=== PATIENT | male | born 1970 | race Caucasian/White ===

== ENCOUNTER 2020-08-12 15:36 | Observation (INO) | payer OTHER, SELFPAY ==
[2020-08-12] VITALS (9 sets, daily range): BP systolic 169–220; BP diastolic 23–128; PULSE 73–102; RESP 16–22; TEMP 36–36.7; O2SAT 96–99; BMI 25.6
[2020-08-12 15:42] LABS: Glucose Point of Care > 500 (65-105)
[2020-08-12 15:57] LABS: Basophils Absolute Auto 0.1 K/mm3 (0.0-0.1); Basophils Percent Auto 0.6 % (0.2-1.2); Eosinophils Absolute Auto 0.1 K/mm3 (0-0.3); Eosinophils Percent Auto 1.6 % (0-4.4); Hematocrit 39.8 % (42.0-52.0); Hemoglobin 13.5 g/dL (14.0-18.0); Immature Granulocyte Absolute 0.03 K/mm3 (0.00-0.031); Immature Granulocyte Percent A 0.3 % (0-0.5); Lymphocytes Absolute Auto 2.18 K/mm3 (0.9-3.2); Lymphocytes Percent Auto 24.8 % (18.3-44.2); Mean Corpuscular HGB Conc 33.9 g/dl (32-36); Mean Corpuscular Hemoglobin 27.2 pg (26-34); Mean Corpuscular Volume 80.1 fl (80-100); Mean Platelet Volume 9.1 fl (7.4-10.4); Monocytes Absolute Auto 0.7 K/mm3 (0.1-0.6); Monocytes Percent Auto 7.4 % (2.6-8.5); Neutrophils Absolute Auto 5.8 K/mm3 (1.3-6.7); Neutrophils Percent Auto 65.3 % (45.5-73.1); Platelet Count Result 270 k/mm3 (150-375); Red Blood Count 4.97 M/mm3 (4.6-6.20); Red Cell Distribution Width 13.6 % (11.5-14.5); White Blood Count 8.8 K/mm3 (4.5-10.0)
[2020-08-12 16:12] LABS: Alanine Aminotransferase 24 U/L (4-50); Albumin Level 3.8 g/dL (3.5-5.1); Alkaline Phosphatase 164 U/L (38-126); Anion Gap 10 mmol/L (8-16); Aspartate Amino Transferase 23 U/L (17-59); Bilirubin,Total 0.4 mg/dL (0.2-1.3); Blood Urea Nitrogen 14 mg/dL (9-20); Carbon Dioxide 26 mmol/L (22-30); Chloride 88 mmol/L (98-107); Estimated CRCL calculation 98 ml/min; Estimated Glomerular Filt Rate > 60; Magnesium 1.6 mg/dL (1.6-2.3); Phosphorus 4.9 mg/dL (2.5-4.5); Potassium 4.7 mmol/L (3.4-5.0); Sodium 124 mmol/L (137-145)
[2020-08-12 16:13] LABS: Add Urine Microscopic? YES; Appearance Urine Clear (Clear); Bilirubin Urine Negative (Negative); Blood Urine Negative (Negative); Color Urine Straw (Yellow); Glucose Urine UA 3+ mg/dL (Negative); Ketones Urine Negative (Negative); Leukocyte Esterase Ur Negative LEU/UL (Negative); Nitrate Urine Negative (Negative); Protein Urine Negative (Negative); RBC Urine 0-2 /hpf (0-2); Specific Grav Ur 1.035 (1.001-1.035); Urobilinogen Urine Negative mg/dL (<2.0); WBC Urine 0-3 /hpf
[2020-08-12 16:15] LABS: Beta-Hydroxybutyrate/Acetoacetate 0.21 mmol/L (0.02-0.27)
[2020-08-12 16:18] LABS: Glucose 621 mg/dL (75-110)
--- NOTE | 2020-08-12 16:27 | ED.GENADULT ---
HPI - General Adult General Chief complaint: Recheck/Abnormal Lab/Rx Stated complaint: ELEVATED BLOOD SUGAR Time Seen by Provider: 08/12/20 16:24 Source: RN notes reviewed History of Present Illness HPI narrative: Patient presents emergency department from home for hyperglycemia and hypertension. The patient states that he has a history of diabetes and hypertension but is not been taking any of his medications over the past year and a half he had gone to a new PCP today and was noted to have elevated blood pressure as well as blood sugars and was advised to come to the ER for further evaluation he denies any fever chills chest pain shortness of breath abdominal pain nausea vomiting diarrhea Related Data Home Medications Medication Instructions Recorded Confirmed No Home Medications 08/12/20 08/12/20 Allergies Allergy/AdvReac Type Severity Reaction Status Date / Time No Known Drug Allergies Allergy Unknown Unknown Verified 08/12/20 16:23 Review of Systems Review of Systems: Narrative: Gen.: Denies fevers or chills Eyes: Denies eye pain or visual change ENT: Denies congestion Respiratory: Denies shortness of breath or cough CV: Denies chest pain or palpitations GI: Denies abdominal pain nausea, emesis or diarrhea denies frequency or hematuria Musculoskeletal: Denies back pain or muscle pain Neuro: Denies numbness, tingling, weakness or focal weakness Skin: Denies rash Except as documented, all other systems reviewed and negative [facility] Past Medical History Medical History (Updated 08/12/20 @ 18:20 by Rocky De Anda DO) Diabetes mellitus Hypertension Social History Social History (Updated 08/12/20 @ 16:28 by Rocky De Anda DO) Smoking status: Never smoker Gender identity (if verbalized by the patient): Male Exam Narrative: Exam Narrative: APPEARANCE: No acute distress, nontoxic, resting in bed EYES: EOMI HEENT: Normocephalic, atraumatic, OMM RESPIRATORY: No respiratory distress Clear to auscultation bilaterally with no rhonchi wheezing or rales. CARDIOVASCULAR: Regular rate and rhythm without murmurs rubs or gallops. ABDOMINAL: Soft, nontender, nondistended, no rebound or guarding MUSCULOSKELETAl: Moves all extremities. No clubbing, cyanosis or edema. NEURO: Awake and alert. Following commands, speech normal, no focal deficits SKIN:: Warm, dry. No rashes lesions or abrasions PSYCHIATRIC: Normal affect/mood, Course Course Emergency Course: : Discussed with FELICIANO Ruby for Dr. Kemp presentation work-up agrees with admission at this time. Agrees with giving patient IV insulin 2 L of fluid discussed patient's current blood pressure the patient is asymptomatic at this time and is felt like blood pressures are always elevated request patient to give metoprolol 25 mg at this time Discussed with patient and family results of workup and diagnosis. Discussed need for admission. Patient and family understand and agree to current treatment plan Vital Signs Vital signs: Vital Signs Temperature 96.8 F L 08/12/20 15:39 Pulse Rate 102 H 08/12/20 15:39 Respiratory Rate 16 08/12/20 15:39 Blood Pressure 220/119 H 08/12/20 15:39 Pulse Oximetry 99 08/12/20 15:39 Temperature 96.8 F L 08/12/20 15:39 Pulse Rate 83 08/12/20 17:13 Respiratory Rate 17 08/12/20 17:13 Blood Pressure 182/107 H 08/12/20 17:13 Pulse Oximetry 96 08/12/20 17:13 Medical Decision Making Vital Signs Vital Signs: Vital Signs Temperature 96.8 F L 08/12/20 15:39 Pulse Rate 102 H 08/12/20 15:39 Respiratory Rate 16 08/12/20 15:39 Blood Pressure 220/119 H 08/12/20 15:39 Pulse Oximetry 99 08/12/20 15:39 Temperature 96.8 F L 08/12/20 15:39 Pulse Rate 83 08/12/20 17:13 Respiratory Rate 17 08/12/20 17:13 Blood Pressure 182/107 H 08/12/20 17:13 Pulse Oximetry 96 08/12/20 17:13 Lab Data Result diagrams: 08/12/20 15:49 08/12/20 15:49 Labs: Lab R
--- NOTE | 2020-08-12 16:28 | ECG_ITS ---
Measurements Intervals [place] Rate: 80 P: 35 [place]: 191 QRS: -58 QRSD: 118 T: 141 QT: 388 QTc: 450 Interpretive Statements SINUS RHYTHM INCOMPLETE RIGHT BUNDLE BRANCH BLOCK LEFT ANTERIOR FASCICULAR BLOCK LEFT VENTRICULAR HYPERTROPHY AND ST-T CHANGE CANNOT RULE OUT SEPTAL INFARCT, AGE INDETERMINATE T WAVE ABNORMALITY IN LATERAL LEADS- CONSIDER ISCHEMIA BASELINE ARTIFACT- V1-V2 ABNORMAL ECG Electronically Signed On 08-12-2020 19:39:59 SPORTS BOOK WRITER by Roque Simmons D.O.
[2020-08-12] MEDS: SODIUM CHLORIDE 0.9% IV 1,000 ML 999 ML IV CONT ×2 (16:34→17:10)
[2020-08-12] MEDS: INSULIN HUMAN REGULAR (*BKC) 100 UNITS/ML 10 UNITS IV PUSH (17:09)
[2020-08-12] MEDS: METOPROLOL TARTRATE 25 MG TABLET PO (17:10)
[2020-08-12 18:03] LABS: Glucose Point of Care 396 (65-105)
[2020-08-12 20:02] LABS: Glucose Point of Care 342 (65-105)
--- NOTE | 2020-08-12 20:13 | ADMGEN ---
This patient, Quentin Sheets, was admitted to IMU Room 206-02. Patient/family oriented to hospital policies and general routines including ID bracelet, bed and alarms, visiting hours, pain management, procedures, bathroom and other care routines, personal items, smoking policy, room service/diet, and visiting hours. Information on how to activate the Rapid Response Team has been discussed. Patient/Family are encouraged to report perceived risks to care and to ask questions if they do not understand what they are told or what they should do. Report from Corey RIVERA arrived Approx [id number]/12/2020
[2020-08-12] MEDS: SODIUM CHLORIDE 0.9% IV 1,000 ML 125 ML IV CONT (20:16)
[2020-08-12 21:30] LABS: Anion Gap 5 mmol/L (8-16); Blood Urea Nitrogen 12 mg/dL (9-20); Calcium 7.8 mg/dL (8.4-10.2); Carbon Dioxide 24 mmol/L (22-30); Chloride 98 mmol/L (98-107); Estimated CRCL calculation 111 ml/min; Estimated Glomerular Filt Rate > 60; Glucose 477 mg/dL (75-110); Potassium 3.9 mmol/L (3.4-5.0); Sodium 127 mmol/L (137-145)
--- NOTE | 2020-08-12 21:42 | PM.IMHP ---
H&P: HPI History of Present Illness Date/Time: 08/12/20 21:42 Chief complaint: hyperglycemia, htn, hyponatremia Narrative: Quentin Sheets is a 49 year old male who has a history of having hypertension and diabetes. The patient stated he has not taken any medication for couple years. The patient finally had a primary care doctor and went to see the primary care doctor today. He does not monitor his blood sugars at home. The patient stated he had polydipsia and polyuria for about the last month. He said when he 1st found out that he was diabetic he was in DKA but he is not in DKA today. He has no nausea vomiting or diarrhea. This was his initial visit to the primary care doctor's office. He was sent to the emergency room from that office due to hyperglycemia and hypertension. Blood sugar was noted to be 621 and then 342 and then 477 the patient is not in DKA and is not having an anion gap. Patient's sodium was 124 than 127 most likely due to the elevated blood sugar. He was given IV fluids. Blood pressure was 220/119 now 169/128. He was given metoprolol in the ER he was given IV insulin. The patient is being admitted into observation status on the date of service of 08/12/2020 Review of Systems Review of Systems: All systems reviewed & are unremarkable except as noted in HPI and below Constitutional: Constitutional: Reports as per HPI and Reports no additional constitutional complaints Eyes: Eyes: Reports as per HPI and Reports no additional eye complaints ENT: Reports system reviewed and no additional complaints, except as documented and Reports Normal hearing present Cardiovascular: Cardiovascular: Reports no additional cardiovascular complaints Respiratory: Respiratory: Reports no additional respiratory complaints and Reports no additional respiratory complaints Gastrointestinal: Gastrointestinal: Reports as per HPI and Reports no additional gastrointestinal complaints Musculoskeletal: Musculoskeletal: Reports no additional musculoskeletal complaints Integumentary/Breasts: Skin/Breast: Reports system reviewed and no additional complaints, except as docu and Reports as per HPI Neurologic: Reports system reviewed and no additional complaints, except as documented, Reports as per HPI and Reports Normal hearing present Psychiatric: Psychiatric: Reports no additional psychiatric complaints and Reports as per HPI Endocrine: Endocrine: Reports no additional endocrine complaints Hematologic/Lymphatic: Hematologic/Lymphatic: Reports no additional hematologic/lymphatic complaints Allergic/Immunologic: Allergic/Immunologic: Reports no additional allergic/immunologic complaints [facility] Past Medical History Medical History Diabetes mellitus Hypertension Surgical History Surgical History (Updated 08/12/20 @ 21:49 by Flori Ramos NP) No pertinent past surgical history Family History Family History Mother COPD (chronic obstructive pulmonary disease) Father Unknown family medical history Social History Social History (Updated 08/12/20 @ 21:49 by Flori Ramos NP) Social History: The patient has 4 biological children in to children that he has guardianship of and is raising. He is and his is a durable power county attorney for healthcare. 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 The patient used to smoke and quit about a year ago. He denies any alcohol or illicit drugs. The patient is a full code. Smoking status: Former smoker Alcohol intake: never Substance use: never Gender identity (if verbalized by the patient): Male Spiritual care concerns: No Meds Home Medications and Allergies Home Medications Medication Instructions Recorded Confirmed Type No Home Medications 08/12/20 08/12/20 History Allergies Allergy/AdvReac Type Severity Reaction Status Date / Time No Known [place]
[2020-08-12 23:38] LABS: Glucose Point of Care 398 (65-105)
[2020-08-13] VITALS (12 sets, daily range): BP systolic 148–201; BP diastolic 93–113; PULSE 72–98; RESP 16–20; TEMP 36.6–37; O2SAT 97–99
[2020-08-13 04:57] LABS: Basophils Percent Auto 0.4 % (0.2-1.2); Eosinophils Absolute Auto 0.1 K/mm3 (0-0.3); Eosinophils Percent Auto 1.6 % (0-4.4); Hematocrit 33.5 % (42.0-52.0); Hemoglobin 11.5 g/dL (14.0-18.0); Immature Granulocyte Absolute 0.03 K/mm3 (0.00-0.031); Immature Granulocyte Percent A 0.4 % (0-0.5); Lymphocytes Absolute Auto 1.99 K/mm3 (0.9-3.2); Lymphocytes Percent Auto 29.8 % (18.3-44.2); Mean Corpuscular HGB Conc 34.3 g/dl (32-36); Mean Corpuscular Hemoglobin 26.6 pg (26-34); Mean Corpuscular Volume 77.5 fl (80-100); Mean Platelet Volume 9.2 fl (7.4-10.4); Monocytes Absolute Auto 0.5 K/mm3 (0.1-0.6); Monocytes Percent Auto 7.9 % (2.6-8.5); Neutrophils Percent Auto 59.9 % (45.5-73.1); Platelet Count Result 231 k/mm3 (150-375); Red Blood Count 4.32 M/mm3 (4.6-6.20); Red Cell Distribution Width 13.2 % (11.5-14.5); White Blood Count 6.7 K/mm3 (4.5-10.0)
[2020-08-13 05:19] LABS: Alanine Aminotransferase 20 U/L (4-50); Alkaline Phosphatase 120 U/L (38-126); Anion Gap 5 mmol/L (8-16); Aspartate Amino Transferase 22 U/L (17-59); Bilirubin,Total 0.4 mg/dL (0.2-1.3); Blood Urea Nitrogen 10 mg/dL (9-20); Carbon Dioxide 26 mmol/L (22-30); Chloride 100 mmol/L (98-107); Estimated CRCL calculation 128 ml/min; Estimated Glomerular Filt Rate > 60; Glucose 354 mg/dL (75-110); Potassium 3.9 mmol/L (3.4-5.0); Sodium 131 mmol/L (137-145)
[2020-08-13] MEDS: SODIUM CHLORIDE 0.9% IV 1,000 ML 125 ML IV CONT (06:02)
[2020-08-13 06:09] LABS: Hemoglobin A1C > 14.0 % (<5.7)
[2020-08-13] MEDS: hydrALAZINE HCL 20 MG/ML VIAL 10 MG IV PUSH (07:38)
[2020-08-13 08:27] LABS: Glucose Point of Care 340 (65-105)
[2020-08-13] MEDS: lisinopriL 20 MG TABLET PO (08:34)
[2020-08-13] MEDS: metFORMIN HCL 500 MG TABLET PO ×2 (08:34→16:46)
[2020-08-13] MEDS: amLODIPine BESYLATE 5 MG TABLET PO (08:34)
[2020-08-13] MEDS: INSULIN ASPART (*BKC) 100 UNITS/ML SUB-Q ×2 (08:37→12:25)
[2020-08-13] MEDS: ENOXAPARIN 40 MG/0.4 ML SYRINGE SUB-Q (08:39)
[2020-08-13] MEDS: INSULIN DETEMIR 100 UNITS/ML 8 UNITS SUB-Q (12:33)
[2020-08-13 12:37] LABS: Glucose Point of Care 318 (65-105)
[2020-08-13 17:25] LABS: Glucose Point of Care 177 (65-105)
--- NOTE | 2020-08-13 17:36 | PM.DS ---
DS: Admitting Diagnosis Admitting Diagnosis Admitting Diagnosis: hyperglycemia, htn, hyponatremia DS: Discharge Diagnosis Discharge Diagnosis (1) Diabetes mellitus: Code(s): E11.9 - Type 2 diabetes mellitus without complications Status: Acute Assessment and Plan: Mary sent in for elevated glucose. Glucose here was 621. He was treated with IV fluids and insulin. A1c 14. We monitored his glucose closely with Accucheks and covered with sliding scale insulin. Manager Professional Development and perioperative educator consulted. He was able to talk with the cementer machine joiner but not the Diab Educator so this will be arranged as outpatient. Metformin and Lantus as night added. (2) Acute hyponatremia: Code(s): E87.1 - Hypo-osmolality and hyponatremia Status: Acute Assessment and Plan: Sodium 124 and most likely is related to the hyperglycemia. With better control of his glucose, sodium improved to 131 today. (3) Hypertension: Code(s): I10 - Essential (primary) hypertension Status: Acute Assessment and Plan: BP 220/119 on admission. Patient had been on lisinopril in the past. Lisinopril and Norvasc added with hydralazine available as needed. With this regiment, BP improved. DS: Summary Hospital Course Reason for hospitalization: 49yo male with uncontrolled HTN and DM with noncompliance here for hyperglycemia. Please see H&P for details. Hospital Course: Please see above for hospital course. Status at Discharge Cognitive/behavioral status at discharge: Patient is stable for discharge. Time Spent with Patient Time attestation: Total time spent providing and/or coordinating discharge services: 35 minutes Time spent: Greater than 30 minutes Exam Narrative: Exam Narrative: AF 98.0 153/96 89 16 98% ra Gen - NARD Chest - CTA bilaterally, nml RR CV - RRR S1/S2 Abd - Soft, NT/ND, Positive BS Ext - No pedal edema Psych - Nml mood and affect Skin - Warm and dry DS: Data Data Completed and Pending Labs on day of discharge: Labs from last 24 hours 08/13/20 08/13/20 08/13/20 16:42 11:27 08:23 WBC RBC Hgb Hct MCV MCH MCHC RDW Plt Count MPV Immature Gran % (Auto) Neut % (Auto) Lymph % (Auto) [place] % (Auto) Eos % (Auto) Baso % (Auto) Lymph # (Auto) [place] # (Auto) Eos # (Auto) Baso # (Auto) Abs Immat Gran (auto) Absolute Neuts (auto) Absolute Nucleated RBC Nucleated RBC % Sodium Potassium Chloride Carbon Dioxide Anion Gap BUN Creatinine Estim Creat Clear Calc Estimated GFR Glucose POC Capillary Glucose 177 H 318 H 340 H Hemoglobin A1c Calcium Total Bilirubin AST ALT Alkaline Phosphatase Total Protein Albumin 08/13/20 08/13/20 08/13/20 04:35 04:35 04:35 WBC 6.7 RBC 4.32 L Hgb 11.5 L Hct 33.5 L MCV 77.5 L MCH 26.6 MCHC 34.3 RDW 13.2 Plt Count 231 MPV 9.2 Immature Gran % (Auto) 0.4 Neut % (Auto) 59.9 Lymph % (Auto) 29.8 [place] % (Auto) 7.9 Eos % (Auto) 1.6 Baso % (Auto) 0.4 Lymph # (Auto) 1.99 [place] # (Auto) 0.5 Eos # (Auto) 0.1 Baso # (Auto) 0.0 Abs Immat Gran (auto) 0.03 Absolute Neuts (auto) 4.0 Absolute Nucleated RBC 0.0 Nucleated RBC % 0.0 Sodium 131 L Potassium 3.9 Chloride 100 Carbon Dioxide 26 Anion Gap 5 L BUN 10 Creatinine 0.60 L Estim Creat Clear Calc 128 Estimated GFR > 60 Glucose 354 H POC Capillary Glucose Hemoglobin A1c > 14.0 H Calcium 8.0 L Total Bilirubin 0.4 AST 22 ALT 20 Alkaline Phosphatase 120 Total Protein 6.0 L Albumin 3.0 L 08/12/20 08/12/20 08/12/20 23:34 21:14 19:56 WBC RBC Hgb Hct MCV MCH MCHC RDW Plt Count MPV Immature Gran % (Auto) Neut % (Auto) Lymph % (Auto) [place] % (Auto) Eos % (Auto)
--- NOTE | 2020-08-13 20:25 | PC.NURSE ---
Pt left at 2012 on 08/13/2020 picked him up
--- NOTE | 2020-08-14 15:06 | PCCDE ---
Consult received 08/12 for diabetes education. Educator was n/a 08/13 and pt was discharged on 08/13. Called pt at home today. Pt was discharged on 12 units Lantus Solostar at HS. Pt confirms that he picked up and took medication as prescribed last night. Pt sts he has used insulin pen in the past and denied questions. He has BG meter and v/u to test QID until f/up with PCP. Pt sts he was just about to call for PCP appointment. Reviewed sx and tx of hypoglycemia. Pt sts he did not get Diabetes Management book so confirmed address and will mail. Pt declines OP appointment. Encouraged to call DM specialist prn.
== END 2020-08-13 20:15 | disposition home or self-care (01) ==
LOC: ANHED 18:19 → ANHIMU 18:23
PROVIDERS: Nurse Practitioner; Admitting Provider Internal Medicine; Emergency Provider Emergency Medicine; Visit Provider Internal Medicine
DX: E11.65 Type 2 diabetes mellitus with hyperglycemia (principal); I10 Essential (primary) hypertension; E87.1 Hypo-osmolality and hyponatremia; R94.31 Abnormal electrocardiogram [ECG] [EKG]; Z87.891 Personal history of nicotine dependence
CPT/HCPCS: 36415; 80048; 80053; 81001; 82010; 82948; 83036; 83735; 84100; 85025; 93005; 96361; 96372; 96374; 99285; A9270; G0378; G0379; J0360; J1650; J1815; J7030

== ENCOUNTER 2024-02-16 13:47 | Outpatient (CLI) | payer OTHER, SELFPAY ==
--- NOTE | 2024-02-16 | ECHO_ITS ---
Patient Info Name: Quentin Sheets Age: 53 years : 1970 Gender: Male Ht: 68 in Wt: 185 lbs BSA: 2.03 m2 HR: 86 bpm BP: 201 / 131 mmHg Technical Quality: Good Exam Date: 02/16/2024 2:17 PM Exam Location: Echo Lab Patient Status: Outpatient Admit Date: 02/16/2024 Staff Ordering Physician: Marci, Cher MONREAL Robotics Mechanic: Erik Alberts RDCS Attending Provider: Marci, Cher MONREAL Referring Physician: Marci BLACKWOOD; Exam Type: CA echo doppler color flow Study Info Indications - cardiomyopathy Complete two-dimensional, color flow and Doppler transthoracic echocardiogram is performed. Summary 1. Complete two-dimensional, color flow and Doppler transthoracic echocardiogram is performed. 2. Left ventricular chamber dimension is moderately enlarged. 3. Left ventricular systolic function is severely reduced, estimated at 25-30%. 4. There is moderate concentric increased left ventricular wall thickness. 5. The left ventricular diastolic function is grade I diastolic dysfunction. 6. E/e' 8 is minimally elevated. 7. Right ventricular systolic function is moderately reduced and with abnormal TAPSE 1.5 cm. 8. Left atrial chamber dimension is mildly enlarged. 9. There is trace aortic valve regurgitation. 10. There is mild mitral valve regurgitation. 11. No pulmonary hypertension, estimated pulmonary arterial systolic pressure is 20 mmHg. Left Ventricle E/e' 8 is minimally elevated. Left ventricular chamber dimension is moderately enlarged. Left ventricular systolic function is severely reduced, estimated at 25-30%. There is moderate concentric increased left ventricular wall thickness. The left ventricular diastolic function is grade I diastolic dysfunction. Right Ventricle Right ventricular systolic function is moderately reduced and with abnormal TAPSE 1.5 cm. Right ventricular chamber dimension is normal. Left Atria Left atrial chamber dimension is mildly enlarged. Right Atria Right atrial chamber dimension is normal. Aortic Valve The aortic valve is trileaflet. There is no aortic valve stenosis. There is trace aortic valve regurgitation. Pulmonic Valve There is no pulmonic regurgitation. Mitral Valve There is no mitral valve stenosis. There is mild mitral valve regurgitation. Tricuspid Valve There is no tricuspid valve regurgitation. No pulmonary hypertension, estimated pulmonary arterial systolic pressure is 20 mmHg. Pericardium/Pleural There is no pericardial effusion. Inferior Vena Cava Normal inferior vena cava with >50% collapse upon inspiration consistent with normal right atrial pressure, 5 mmHg. Aorta The aortic root size at the sinus of Valsalva is normal. Left Ventricular Outflow Tract Name Value Normal LVOT 2D LVOT Diameter 2.1 cm LVOT Doppler LVOT Peak Gradient 3 mmHg LVOT Mean Gradient 2 mmHg LVOT VTI 15 cm LVOT VTI/AV VTI Ratio 0.8 LVOT Stroke Volume 53 ml LVOT CO 4.6 l/min LVOT CI 2.3 l/min/m2 Pulmonic Valve
== END 2024-02-16 13:48 | disposition home or self-care (01) ==
LOC: ANHCARD 13:56
PROVIDERS: PCP Physician Assistant; Visit Provider Physician Assistant
DX: I42.9 Cardiomyopathy, unspecified (principal); I34.0 Nonrheumatic mitral (valve) insufficiency
CPT/HCPCS: 93306

== ENCOUNTER 2024-09-16 20:57 | Inpatient (IN) | payer OTHER, SELFPAY ==
--- NOTE | ~2024-09-16 | XR_ITS ---
XR chest 2V Ordering provider: Gerber South MD History: 53 years Male with . sob . Comparison: July 03, 2000 FINDINGS: MEDIASTINUM: The cardiac silhouette is not enlarged. Prominent brianna. LUNGS: No pneumothorax. Possible Opacification the right lung base is seen suggestive of atelectasis versus pneumonia. Pleural effusion cannot be excluded. Elevation of the right hemidiaphragm is also p ossible. OTHER: No free air under the diaphragm. IMPRESSION: Possible Right basilar atelectasis versus pneumonia with possible effusion. Reviewed, dictated and finalized at location A. [facility]
[2024-09-16 21:02] VITALS: BP 210/128; PULSE 103; RESP 24; TEMP 36.3; O2SAT 100
--- NOTE | 2024-09-16 21:07 | ECG_ITS ---
Test Date: 2024-09-16 21:16:43 Measurements Intervals [place] Rate: 101 P: 25 [place]: 156 QRS: -43 QRSD: 123 T: 134 QT: 381 QTc: 494 Interpretive Statements SINUS TACHYCARDIA POSSIBLE LEFT ATRIAL ENLARGEMENT [-0.1mV P WAVE IN V1/V2] MARKED LEFT AXIS DEVIATION [QRS AXIS < -30] LEFT VENTRICULAR HYPERTROPHY AND ST-T CHANGE [VOLTAGE CRITERIA PLUS ST/T ABNORMALITY] PROBABLE LATERAL MYOCARDIAL INFARCTION , OF INDETERMINATE AGE [35 ms Q WAVE IN I/aVL/V5/V6] LATERAL ST AND T-WAVE ABNORMALITY, CONSISTENT WITH ISCHEMIA ABNORMAL ECG Electronically Signed On 09-17-2024 08:28:24 PRINCIPAL TRAINER by Jordan Motley M.D.
[2024-09-16 21:18] LABS: Basophils Absolute Auto 0.1 K/mm3 (0.0-0.1); Basophils Percent Auto 0.8 % (0.2-1.2); Eosinophils Absolute Auto 0.2 K/mm3 (0-0.3); Eosinophils Percent Auto 2.1 % (0-4.4); Hematocrit 40.1 % (42.0-52.0); Hemoglobin 12.7 g/dL (14.0-18.0); Immature Granulocyte Absolute 0.03 K/mm3 (0.00-0.031); Immature Granulocyte Percent A 0.3 % (0-0.5); Lymphocytes Absolute Auto 1.46 K/mm3 (0.9-3.2); Lymphocytes Percent Auto 15.5 % (18.3-44.2); Mean Corpuscular HGB Conc 31.7 g/dl (32-36); Mean Corpuscular Hemoglobin 27.5 pg (26-34); Mean Corpuscular Volume 86.8 fl (80-100); Mean Platelet Volume 9.6 fl (7.4-10.4); Monocytes Absolute Auto 0.8 K/mm3 (0.1-0.6); Monocytes Percent Auto 8.6 % (2.6-8.5); Neutrophils Absolute Auto 6.9 K/mm3 (1.3-6.7); Neutrophils Percent Auto 72.7 % (45.5-73.1); Platelet Count Result 295 k/mm3 (150-375); Red Blood Count 4.62 M/mm3 (4.6-6.20); Red Cell Distribution Width 15.7 % (11.5-14.5); White Blood Count 9.4 K/mm3 (4.5-10.0)
[2024-09-16 21:28] LABS: Alanine Aminotransferase 44 U/L (6-50); Albumin Level 3.9 g/dL (3.5-5.1); Alkaline Phosphatase 107 U/L (38-126); Anion Gap 9 mmol/L (4-12); Aspartate Amino Transferase 34 U/L (17-59); Bilirubin,Total 0.8 mg/dL (0.2-1.3); Blood Urea Nitrogen 20 mg/dL (9-20); Calcium 8.6 mg/dL (8.4-10.2); Carbon Dioxide 23 mmol/L (22-30); Chloride 103 mmol/L (98-107); Estimated CRCL calculation 72 ml/min; Estimated Glomerular Filt Rate > 60; Glucose 184 mg/dL (65-110); Potassium 4.4 mmol/L (3.4-5.0); Sodium 135 mmol/L (137-145)
[2024-09-16 21:45] LABS: NT Pro B Type Natriuretic Pept 4740 pg/mL (19.9-100); Troponin I 0.368 ng/mL (0.000-0.034)
[2024-09-16 21:55] LABS: Influenza A QL RT-PCR Negative (Negative); Influenza B QL RT-PCR Negative (Negative); RSV RNA, RT-PCR Negative (Negative); SARS-CoV-2 RNA PCR Negative (Negative)
[2024-09-16 22:19] VITALS: BP 196/128; PULSE 97; RESP 15; O2SAT 98
--- NOTE | 2024-09-16 22:41 | ED_ITS ---
HPI - General Adult General Chief complaint: Shortness of Breath/Dyspnea Stated complaint: SOB, BLE swelling Time Seen by Provider: 09/16/24 22:07 History of Present Illness HPI narrative: 53-year-old male presenting to the emergency department for evaluation for lower extremity swelling and exertional shortness of breath. Patient does have history hypertension and CHF. Patient does admit to being noncompliant with some of his blood pressure medications. Patient states he has attempted have follow-up with his primary care physician but is unable to get these medications filled. Patient states over the last few days he has had worsening orthopnea and lower extremity swelling. Patient denies any chest pain with this. Patient states the shortness breath is worsened while laying flat. Has no O2 requirement. Patient states he was told he had a mild WA last year but patient had a negative cardiac cath at that time. Related Data Allergies Allergy/AdvReac Type Severity Reaction Status Date / Time No Known Drug Allergies Allergy Unknown Unknown Verified 09/16/24 21:06 Review of Systems 2 Review of Systems: All systems reviewed & are unremarkable except as noted in HPI and below PMFSH Past Medical History Medical History (Updated 09/17/24 @ 02:06 by Gerber South MD) Diabetes mellitus Hypertension Surgical History Surgical History (Updated 08/12/20 @ 21:49 by Flori Ramos NP) No pertinent past surgical history Family History Family History Mother COPD (chronic obstructive pulmonary disease) Father Unknown family medical history Social History Social History (Updated 08/12/20 @ 21:49 by Flori Ramos NP) Social History: The patient has 4 biological children in to children that he has guardianship of and is raising. 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 The patient used to smoke and quit about a year ago. He denies any alcohol or illicit drugs. The patient is a full code. Smoking packs per day: 1.5 Smoking cigarettes per day: 30.0 Years smoked: 30 Smoking pack-years: 45.00 Smoking status: Current every day smoker Tobacco type: cigarettes Alcohol intake: never Substance use: never Do You Feel Safe in your Home?: Yes Lack of Transportation: No Lack of Food: Never True Current Housing: I Have Housing Concerned About Future Housing: No Difficulty Paying Gas/Electric Bills: No Difficulty Paying for Meds: No Currently Unemployed: No Education: Associate Degree Difficulty w/ Childcare or Family Care: No Gender identity (if verbalized by the patient): Male Spiritual care concerns: No Exam 2 Narrative: APPEARANCE: Well appearing, no pain, no distress, well-nourished. HEAD: normocephalic, atraumatic. EYES: PERRLA/EOMI, conjunctivae clear. NOSE: Normal no drainage EARS:TMS clear with good light reflex. THROAT: Pharynx clear, no exudate. NECK: Supple. No adenopathy, no masses. RESPIRATORY: Airway patent, respirations nonlabored. Clear to auscultation bilaterally, no rales, rhonchi, wheezing. CARDIOVASCULAR: Regular rate and rhythm without murmurs rubs or gallops. ABDOMINAL: Soft, nontender, nondistended, normal bowel sounds MUSCULOSKELETAL: Bilateral lower extremity +2 pitting in NEURO: Alert. Cranial nerves II through XII intact. Grossly intact SKIN: Warm, dry. Normal Color Course Vital Signs Vital signs: Vital Signs Temperature 97.4 F L 09/16/24 21:02 Pulse Rate 103 H 09/16/24 21:02 Respiratory Rate 24 H 09/16/24 21:02 Blood Pressure 210/128 H 09/16/24 21:02 Pulse Oximetry 100 09/16/24 21:02 Oxygen Delivery Room Air 09/16/24 21:02 Temperature 97.8 F 09/17/24 04:53 Pulse Rate 88 09/17/24 06:00 Respiratory Rate 18 09/17/24 04:53 Blood Pressure 158/84 H 09/17/24 04:53 Pulse Oximetry 100 09/17/24 04:53 Oxygen Delivery Room Air 09/17/24 05:06 Medical Decision Making [facility] Narrative Medical decision making narrative: 53-year-old male presents to the emergency department for evaluation for worsening shortness of breath. Patient denies any associated chest pain with this. Patient states he has not been taking his blood pressure medications as directed. Patient was treated with a dose of hydralazine and also IV Lasix and patient's blood pressure did improve initially to a systolic of 170. Did have a increase in his troponin with no changes in the EKG. Patient continued to deny any pain. Dr Motley from Cardiology was consulted and they did not want the patient started on heparin at this time. We will continue to follow the troponins. Patient will be admitted to the IMU. Case was discussed with the hospitalist patient was accepted for admission. Differential Diagnosis Differential Diagnosis: CHF, ACS, would, RSV, influenza, fluid overload, hypertensive urgency, hypertensive crisis Vital Signs Vital Signs: Vital Signs Temperature 97.4 F L 09/16/24 21:02 Pulse Rate 103 H 09/16/24 21:02 Respiratory Rate 24 H 09/16/24 21:02 Blood Pressure 210/128 H 09/16/24 21:02 Pulse Oximetry 100 09/16/24 21:02 Oxygen Delivery Room Air 09/16/24 21:02 Temperature 97.8 F 09/17/24 04:53 Pulse Rate 88 09/17/24 06:00 Respiratory Rate 18 09/17/24 04:53 Blood Pressure 158/84 H 09/17/24 04:53 Pulse Oximetry 100 09/17/24 04:53 Oxygen Delivery Room Air 09/17/24 05:06 Lab Data Lab results reviewed: Yes I reviewed the patient's lab results. 09/16/24 21:12 09/16/24 21:12 Labs: Lab Results 09/16/24 09/16/24 09/16/24 Range/Units 21:12 21:12 21:12 WBC 9.4 (4.5-10.0) K/mm3 RBC 4.62 (4.6-6.20) M/mm3 Hgb 12.7 L (14.0-18.0) g/dL Hct 40.1 L (42.0-52.0) % MCV 86.8 (80-100) fl MCH 27.5 (26-34) pg MCHC 31.7 L (32-36) g/dl RDW 15.7 H (11.5-14.5) % Plt Count 295 (150-375) k/mm3 MPV 9.6 (7.4-10.4) fl Immature Gran % (Auto) 0.3 (0-0.5) % Neut % (Auto) 72.7 (45.5-73.1) % Lymph % (Auto) 15.5 L (18.3-44.2) % [place]idan % (Auto) 8.6 H (2.6-8.5) % Eos % (Auto) 2.1 (0-4.4) % Baso % (Auto) 0.8 (0.2-1.2) % Lymph # (Auto) 1.46 (0.9-3.2) K/mm3 [place] # (Auto) 0.8 H (0.1-0.6) K/mm3 Eos # (Auto) 0.2 (0-0.3) K/mm3 Baso # (Auto) 0.1 (0.0-0.1) K/mm3 Abs Immat Gran (auto) 0.03 (0.00-0.031) K/mm3 Absolute Neuts (auto) 6.9 H (1.3-6.7) K/mm3 Absolute Nucleated RBC 0.000 (0.0-0.012) K/mm3 Nucleated RBC % 0.0 (0.0-0.2) % Sodium 135 L (137-145) mmol/L Potassium 4.4 (3.4-5.0) mmol/L Chloride 103 (98-107) mmol/L Carbon Dioxide 23 (22-30) mmol/L Anion Gap 9 (4-12) mmol/L BUN 20 D (9-20) mg/dL Creatinine 1.17 (0.7-1.3) mg/dL Estim Creat Clear Calc 72 ml/min Estimated GFR > 60 (59 - ) Glucose 184 H (65-110) mg/dL Calcium 8.6 (8.4-10.2) mg/dL Total Bilirubin 0.8 (0.2-1.3) mg/dL AST 34 (17-59) U/L ALT 44 (6-50) U/L Alkaline Phosphatase 107 (38-126) U/L Troponin I 0.368 H* Cancelled (0.000-0.034) ng/mL NT-Pro-B Natriuret Pep 4740 H Cancelled (19.9-100) pg/mL Total Protein 7.0 (6.3-8.2) g/dL Albumin 3.9 (3.5-5.1) g/dL Influenza A (RT-PCR) Negative (Negative) Influenza B (RT-PCR) Negative (Negative) RSV (RT-PCR) Negative (Negative) SARS-CoV-2 RNA (RT-PCR) Negative (Negative) 09/17/24 Range/Units 00:13 WBC (4.5-10.0) K/mm3 RBC (4.6-6.20) M/mm3 Hgb (14.0-18.0) g/dL Hct (42.0-52.0) % MCV (80-100) fl MCH (26-34) pg MCHC (32-36) g/dl RDW (11.5-14.5) % Plt Count (150-375) k/mm3 MPV (7.4-10.4) fl Immature Gran % (Auto) (0-0.5) % Neut % (Auto) (45.5-73.1) % Lymph % (Auto) (18.3-44.2) % [place] % (Auto) (2.6-8.5) % Eos % (Auto) (0-4.4) % Baso % (Auto) (0.2-1.2) % Lymph # (Auto) (0.9-3.2) K/mm3 [place] # (Auto) (0.1-0.6) K/mm3 Eos # (Auto) (0-0.3) K/mm3 Baso # (Auto) (0.0-0.1) K/mm3 Abs Immat Gran (auto) (0.00-0.031) K/mm3 Absolute Neuts (auto) (1.3-6.7) K/mm3 Absolute Nucleated RBC (0.0-0.012) K/mm3 Nucleated RBC % (0.0-0.2) % Sodium (137-145) mmol/L Potassium (3.4-5.0) mmol/L Chloride (98-107) mmol/L Carbon Dioxide (22-30) mmol/L Anion Gap (4-12) mmol/L BUN (9-20) mg/dL Creatinine (0.7-1.3) mg/dL Estim Creat Clear Calc ml/min Estimated GFR (59 - ) Glucose (65-110) mg/dL Calcium (8.4-10.2) mg/dL Total Bilirubin (0.2-1.3) mg/dL AST (17-59) U/L ALT (6-50) U/L Alkaline Phosphatase (38-126) U/L Troponin I 0.640 H* D (0.000-0.034) ng/mL NT-Pro-B Natriuret Pep (19.9-100) pg/mL Total Protein (6.3-8.2) g/dL Albumin (3.5-5.1) g/dL Influenza A (RT-PCR) (Negative) Influenza B (RT-PCR) (Negative) RSV (RT-PCR) (Negative) SARS-CoV-2 RNA (RT-PCR) (Negative) Imaging Data Radiologist's impression: Impressions Chest X-Ray 09/16/24 21:34 IMPRESSION: Possible Right basilar atelectasis versus pneumonia with possible effusion. Critical Care Time Critical Care Time Critical Care Time: Yes Total Critical Care Time: 35 Discharge Plan Discharge Clinical Impression: Hypertensive emergency, Elevated troponin Patient Disposition: Still a Patient Condition: Serious
[2024-09-16] MEDS: FUROSEMIDE INJ 40 MG/4 ML VIAL IV PUSH (22:48)
[2024-09-16] MEDS: hydrALAZINE HCL 20 MG/ML VIAL 10 MG IV PUSH (22:48)
[2024-09-16 23:38] VITALS: BP 176/104; PULSE 92; RESP 15; O2SAT 99
[2024-09-17] VITALS (20 sets, daily range): BP systolic 131–180; BP diastolic 69–100; PULSE 85–99; RESP 15–22; TEMP 36.6–37.1; O2SAT 95–100; BMI 28.8
--- NOTE | 2024-09-17 00:12 | ECG_ITS ---
Test Date: 2024-09-17 00:18:25 Measurements Intervals [place] Rate: 87 P: 19 [place]: 210 QRS: -42 QRSD: 122 T: 158 QT: 400 QTc: 483 Interpretive Statements SINUS RHYTHM WITH FIRST DEGREE AV BLOCK LEFT ANTERIOR FASCICULAR BLOCK LEFT VENTRICULAR HYPERTROPHY AND ST-T CHANGE [VOLTAGE CRITERIA PLUS ST/T ABNORMALITY] POSSIBLE LATERAL MYOCARDIAL INFARCTION , OF INDETERMINATE AGE [30 ms Q WAVE IN I/aVL/V5/V6] LATERAL ST AND T-WAVE ABNORMALITY, CONSIDER ISCHEMIA ABNORMAL ECG Electronically Signed On 09-17-2024 08:31:09 APPLICATION SUPPORT by Jordan Motley M.D.
[2024-09-17] MEDS: hydrALAZINE HCL 20 MG/ML VIAL 10 MG IV PUSH (01:38)
[2024-09-17] MEDS: NITROGLYCERIN OINTMENT 1 INCH DOSE TRANSDERM (01:39)
[2024-09-17] MEDS: ASPIRIN 81 MG CHEWABLE TABLET 324 MG PO (02:27)
[2024-09-17 03:41] LABS: Troponin I 0.905 ng/mL (0.000-0.034)
--- NOTE | 2024-09-17 04:38 | ADMGEN ---
This patient, Quentin Sheets, was admitted to IMU Room 207-01. Patient/family oriented to hospital policies and general routines including ID bracelet, bed and alarms, visiting hours, pain management, procedures, bathroom and other care routines, personal items, smoking policy, room service/diet, and visiting hours. Information on how to activate the Rapid Response Team has been discussed. Patient/Family are encouraged to report perceived risks to care and to ask questions if they do not understand what they are told or what they should do.
--- NOTE | 2024-09-17 05:02 | PC.NURSE ---
Patient states he does not know any of his home medications or what he takes medications for. Unsure when he last took any medications. States he has a blood pressure medication, but sometimes takes it and sometimes does not. States he thinks he was told he has CHF.
[2024-09-17 07:01] LABS: Glucose Point of Care 132 mg/dl (65-105)
--- NOTE | 2024-09-17 07:31 | P.HP_ITS ---
H&P: HPI History of Present Illness Date/Time: 09/17/24 07:31 Chief Complaint: Shortness of breath Narrative: 53 years old with past medical history of hypertension and congestive heart failure was admitted to the emergency room the complaint of having increased swelling in the lower extremity and shortness of breath going on for the last 1 week. According to the patient he is noncompliant with his medication and is not taking his water pill for the last few days. Patient denies any chest pain. Patient denies any orthopnea proximal nocturnal dyspnea at this time. In the ER patient patient was high and patient was found to be in acute heart failure. Patient was given Lasix and hydralazine. Patient EKG shows nonspecific EKG changes but is to prevent was high. Cardiology was consulted who decided to put the patient acute care for further management. At this time patient lying comfortably in the bed. Patient has mild shortness of breath. But no chest pain. Review of Systems Review of Systems: All systems reviewed & are unremarkable except as noted in HPI and below (the history and examination.) [facility] Past Medical History Medical History Diabetes mellitus Hypertension Surgical History Surgical History No pertinent past surgical history Family History Family History Mother COPD (chronic obstructive pulmonary disease) Father Unknown family medical history Social History Social History Social History: The patient has 4 biological children in to children that he has guardianship of and is raising. 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 The patient used to smoke and quit about a year ago. He denies any alcohol or illicit drugs. The patient is a full code. Smoking packs per day: 1.5 Smoking cigarettes per day: 30.0 Years smoked: 30 Smoking pack-years: 45.00 Smoking status: Current every day smoker Tobacco type: cigarettes Alcohol intake: never Substance use: never Do You Feel Safe in your Home?: Yes Lack of Transportation: No Lack of Food: Never True Current Housing: I Have Housing Concerned About Future Housing: No Difficulty Paying Gas/Electric Bills: No Difficulty Paying for Meds: No Currently Unemployed: No Education: Associate Degree Difficulty w/ Childcare or Family Care: No Gender identity (if verbalized by the patient): Male Spiritual care concerns: No Meds Home Medications and Allergies Home Medications ?Medication ?Instructions ?Recorded ?Confirmed ?Type amlodipine 5 mg tablet (Norvasc) 5 mg PO QAM #30 tabs 08/13/20 Rx blood sugar diagnostic (OneTouch #1 pkg 08/13/20 Rx Verio test strips) blood-glucose meter (OneTouch #1 pkg 08/13/20 Rx Verio Flex Meter) insulin glargine 100 unit/mL (3 12 unit (0.12 mL) subcut HS #3 mL 08/13/20 Rx mL) subcutaneous pen (Lantus Solostar U-100 Insulin) lancets 30 gauge (OneTouch Delica #1 pkg 08/13/20 Rx Plus Lancet) lisinopril 20 mg tablet 20 mg PO QAM #30 tabs 08/13/20 Rx metformin 500 mg tablet 500 mg PO BIDWM #60 tabs 08/13/20 Rx (Glucophage) pen needle, diabetic 32 gauge x #1 pkg 08/13/20 Rx 5/32 (BD Ultra-Fine Zee Pen Needle) Allergies Allergy/AdvReac Type Severity Reaction Status Date / Time No Known Drug Allergies Allergy Unknown Unknown Verified 09/16/24 21:06 Vital Signs Vital Signs - 24 hr 09/16/24 21:02 09/16/24 22:19 09/16/24 23:38 Temperature 36.3 C L Pulse Rate 103 H 97 92 Respiratory Rate 24 H 15 15 Blood Pressure 210/128 H 196/128 H 176/104 H Pulse Oximetry 100 98 99 Oxygen Delivery Room Air 09/17/24 00:14 09/17/24 01:43 09/17/24 02:52 Temperature Pulse Rate 91 89 96 Respiratory Rate 22 H 15 16 Blood Pressure 168/98 H 180/100 H 164/84 H Pulse Oximetry 100 97 100 Oxygen Delivery 09/17/24 04:35 09/17/24 04:36 09/17/24 04:53 Temperature 36.6 C 36.6 C Pulse Rate 90 89 90 Respiratory Rate 18 18 Blood Pressure 158/84 H 158/84 H Pulse Oximetry 100 100 Oxygen Delivery 09/17/24 05:06 09/17/24 06:00 Temperature Pulse Rate 88 Respiratory Rate Blood Pressure Pulse Oximetry Oxygen Delivery Room Air Exam Narrative: APPEARANCE: Well appearing, no pain, no distress, well-nourished. HEAD: normocephalic, atraumatic. EYES: PERRLA/EOMI, conjunctivae clear. NOSE: Normal no drainage EARS:TMS clear with good light reflex. THROAT: Pharynx clear, no exudate. NECK: Supple. No adenopathy, no masses. RESPIRATORY: Airway patent, respirations nonlabored. Clear to auscultation bilaterally, no rales, rhonchi, wheezing. CARDIOVASCULAR: Regular rate and rhythm without murmurs rubs or gallops. ABDOMINAL: Soft, nontender, nondistended, normal bowel sounds MUSCULOSKELETAL: Bilateral lower extremity +2 pitting in NEURO: Alert. Cranial nerves II through XII intact. Grossly intact SKIN: Warm, dry. Normal Color H&P: Results Labs Labs: Short CBC 09/16/24 Range/Units 21:12 WBC 9.4 (4.5-10.0) K/mm3 Hgb 12.7 L (14.0-18.0) g/dL Hct 40.1 L (42.0-52.0) % Plt Count 295 (150-375) k/mm3 BMP 09/16/24 21:12 Sodium 135 L Potassium 4.4 Chloride 103 Carbon Dioxide 23 BUN 20 D Creatinine 1.17 Glucose 184 H Calcium 8.6 Cardiac Enzymes 09/16/24 09/16/24 09/17/24 Range/Units 21:12 21:12 00:13 Troponin I 0.368 H* Cancelled 0.640 H* D (0.000-0.034) ng/mL 09/17/24 Range/Units 03:06 Troponin I 0.905 H* D (0.000-0.034) ng/mL Liver Function 09/16/24 Range/Units 21:12 Total Bilirubin 0.8 (0.2-1.3) mg/dL AST 34 (17-59) U/L ALT 44 (6-50) U/L Alkaline Phosphatase 107 (38-126) U/L Albumin 3.9 (3.5-5.1) g/dL Assessment and Plan Assessment and plan (1) Acute on chronic systolic (congestive) heart failure: Code(s): I50.23 - Acute on chronic systolic (congestive) heart failure Status: Acute Assessment and Plan: Plan is to continue diet his patient. Strict and I&Os. Cardiology consult. (2) Elevated troponin: Code(s): R79.89 - Other specified abnormal findings of blood chemistry Status: Acute Assessment and Plan: Trend troponin and cardiology consult. (3) Diabetes mellitus: Code(s): E11.9 - Type 2 diabetes mellitus without complications Status: Acute Assessment and Plan: Continue current treatment monitor closely. Diabetic Education (4) Hypertensive emergency: Code(s): I16.1 - Hypertensive emergency Status: Acute Assessment and Plan: Monitor blood pressure closely. Start home medication. (5) Smoking history: Code(s): Z87.891 - Personal history of nicotine dependence Status: Acute Assessment and Plan: Smoking Education provided and patient patient to quit smoking. Plan Patient is admitted acute care is full code patient. Cardiology consult. DVT prophylaxis started. Code status full Quality VTE Prophylaxis VTE prophylaxis: pharmacologic ordered
--- NOTE | 2024-09-17 08:17 | ECG_ITS ---
Test Date: 2024-09-17 08:27:25 Measurements Intervals [place] Rate: 91 P: 37 [place]: 194 QRS: -47 QRSD: 119 T: 165 QT: 397 QTc: 491 Interpretive Statements SINUS RHYTHM POSSIBLE LEFT ATRIAL ENLARGEMENT [-0.1mV P-WAVE IN V1/V2] LEFT ANTERIOR FASCICULAR BLOCK [QRS AXIS <= -45, QR IN I, RS IN II] LEFT VENTRICULAR HYPERTROPHY AND ST-T CHANGE [VOLTAGE CRITERIA PLUS ST/T ABNORMALITY] LATERAL ST AND T-WAVE ABNORMALITY, CONSISTENT WITH ISCHEMIA ABNORMAL ECG Electronically Signed On 09-17-2024 08:42:43 WASHROOM OPERATOR by Jordan Motley M.D.
[2024-09-17] MEDS: FUROSEMIDE INJ 40 MG/4 ML VIAL IV PUSH ×2 (09:28→20:31)
[2024-09-17] MEDS: ENOXAPARIN 40 MG/0.4 ML SYRINGE SUB-Q (09:28)
[2024-09-17] MEDS: ATORVASTATIN 20 MG TABLET PO (09:29)
[2024-09-17] MEDS: amLODIPine BESYLATE 5 MG TABLET PO (09:29)
[2024-09-17] MEDS: lisinopriL 10 MG TABLET PO ×2 (09:29→16:29)
--- NOTE | 2024-09-17 10:21 | PC.NURSE ---
Possible ST elevation noted to tele monitor. EKG obtained. No complaints of chest pain. Does not appear to have changed from previous ekg, but notified Dr Tolbert in order to review if needed.
--- NOTE | 2024-09-17 10:54 | PM.CNCAR ---
Assessment and Plan Assessment and plan (1) Acute on chronic systolic (congestive) heart failure: Code(s): I50.23 - Acute on chronic systolic (congestive) heart failure Status: Acute Assessment and Plan: Known ejection fraction here of 25-30%. States that he was catheterization that [place] and was told that he did not have any obstructive coronary disease. He has acute exacerbation due to running out of several his medications. At this point will diuresis 40 mg IV q.12 hours and furosemide. Discontinue amlodipine as he does not take calcium channel julia given his severe cardiomyopathy. Resume his Jardiance. He is diabetic and was on 25 mg daily and this will be restarted. Spironolactone 25 mg daily also be will be started. Lisinopril 20 mg daily. Uncertain why he is not on a beta-julia but if he can tolerate and if no she contraindication, would add carvedilol. (2) Elevated troponin: Code(s): R79.89 - Other specified abnormal findings of blood chemistry Status: Acute Assessment and Plan: Continue to trend troponins. Likely secondary to hypertensive emergency and heart failure EKG is abnormal and will try to obtain catheterization records from [facility] to confirm no significant CAD. Troponin now. 2D echocardiogram with Doppler will also be reordered. Aspirin 81 mg p.o. daily to be started in the interim (3) Hypertensive emergency: Code(s): I16.1 - Hypertensive emergency Status: Acute Assessment and Plan: Start and or resume spironolactone, lisinopril. P.r.n. hydralazine (4) Hypertension associated with diabetes: Code(s): E11.59 - Type 2 diabetes mellitus with other circulatory complications; I15.2 - Hypertension secondary to endocrine disorders Status: Acute Assessment and Plan: As detailed above (5) Smoking history: Code(s): Z87.891 - Personal history of nicotine dependence Status: Acute Assessment and Plan: Tobacco abuse counseling performed (6) Hyperlipidemia associated with type 2 diabetes mellitus: Code(s): E11.69 - Type 2 diabetes mellitus with other specified complication; E78.5 - Hyperlipidemia, unspecified Status: Acute Assessment and Plan: Atorvastatin 40 mg daily he 20 started (7) Cardiomyopathy: Code(s): I42.9 - Cardiomyopathy, unspecified Status: Acute Assessment and Plan: Previously severe with EF 25-30%. Probably nonischemic. Repeat 2D echocardiogram Doppler History of Present Illness History of Present Illness Consult date/time: 09/17/24 10:54 Requesting physician: Gerber South MD Consult reason: Other (Hypertensive emergency) Reason For Visit: Hypertensive emergency Narrative: Reason for consult, hypertensive emergency Date of service 09/17/2024 Flushed provider: Dr. South History patient is a 53-year-old male who has history of severe cardiomyopathy, hypertension, diabetes. Did have workup at [facility] but has not followed up. He has ran out of several of his medications for the past several weeks. If he does not know which medications he has ran out of but regardless he presented to the hospital with 4 days of worsening lower extremity swelling, worsening shortness of breath with activity. His short of breath with doing simple things such as walking. He also had some dizziness. No paroxysmal nocturnal dyspnea, orthopnea, chest pain, syncope is. He came to the ER for further workup evaluation. BP was markedly elevated she is. Next troponin is also minimally elevated and rising. Worsening lower extremity swelling is noted started on IV diuresis. He is already feeling better at this point. Review of Systems Review of Systems: All systems reviewed & are unremarkable except as noted in HPI and below Constitutional: Constitutional: Denies body ache(s) Eyes: Eyes: Denies blurry vision ENT: Denies epistaxis Cardiovascular: Cardiovascular: Denies chest pain and Reports leg edema Respiratory: Respiratory: Reports dyspnea and Reports dyspnea on exertion Gastrointestinal: Gastrointestinal: Denies abdominal pain Genitourinary: Genitourinary: Denies hematuria Musculoskeletal: Musculoskeletal: Denies back pain Integumentary/Breasts: Skin/Breast: Denies skin pain Neurologic: Denies headache(s) Psychiatric: Psychiatric: Denies anxiety Endocrine: Endocrine: Denies excessive sweating Hematologic/Lymphatic: Hematologic/Lymphatic: Denies easy bleeding Allergic/Immunologic: Allergic/Immunologic: Denies lip swelling PMFSH Past Medical History Medical History Diabetes mellitus Hypertension Surgical History Surgical History No pertinent past surgical history Family History Family History Mother COPD (chronic obstructive pulmonary disease) Father Unknown family medical history Social History Social History Social History: The patient has 4 biological children in to children that he has guardianship of and is raising. 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 The patient used to smoke and quit about a year ago. He denies any alcohol or illicit drugs. The patient is a full code. Smoking packs per day: 1.5 Smoking cigarettes per day: 30.0 Years smoked: 30 Smoking pack-years: 45.00 Smoking status: Current every day smoker Tobacco type: cigarettes Alcohol intake: never Substance use: never Do You Feel Safe in your Home?: Yes Lack of Transportation: No Lack of Food: Never True Current Housing: I Have Housing Concerned About Future Housing: No Difficulty Paying Gas/Electric Bills: No Difficulty Paying for Meds: No Currently Unemployed: No Education: Associate Degree Difficulty w/ Childcare or Family Care: No Gender identity (if verbalized by the patient): Male Spiritual care concerns: No Meds Home Medications and Allergies Home Medications ?Medication ?Instructions ?Recorded ?Confirmed ?Type blood sugar diagnostic (OneTouch #1 [facility] 08/13/20 09/17/24 Rx Verio test strips) blood-glucose meter (OneTouch #1 [facility] 08/13/20 09/17/24 Rx Verio Flex Meter) lancets 30 gauge (OneTouch Delica #1 [facility] 08/13/20 09/17/24 Rx Plus Lancet) lisinopril 20 mg tablet 20 mg PO QAM #30 tabs 08/13/20 09/17/24 Rx metformin 500 mg tablet 500 mg PO BIDWM #60 tabs 08/13/20 09/17/24 Rx (Glucophage) pen needle, diabetic 32 gauge x #1 pkg 08/13/20 Rx 5/32 (BD Ultra-Fine Zee Pen Needle) atorvastatin 40 mg tablet 40 mg PO QPM 09/17/24 09/17/24 History empagliflozin 25 mg tablet 25 mg PO DAILY 09/17/24 09/17/24 History (Jardiance) furosemide 40 mg tablet 40 mg PO DAILY 09/17/24 09/17/24 History insulin glargine 100 unit/mL (3 24 unit subcut HS 09/17/24 09/17/24 History mL) subcutaneous pen (Lantus Solostar U-100 Insulin) spironolactone 25 mg tablet 25 mg PO DAILY 09/17/24 09/17/24 History Allergies Allergy/AdvReac Type Severity Reaction Status Date / Time No Known Drug Allergies Allergy Unknown Unknown Verified 09/16/24 21:06 Vital Signs Vital Signs - 24 hr 09/16/24 21:02 09/16/24 22:19 09/16/24 23:38 Temperature 36.3 C L Pulse Rate 103 H 97 92 Respiratory Rate 24 H 15 15 Blood Pressure 210/128 H 196/128 H 176/104 H Pulse Oximetry 100 98 99 Oxygen Delivery Room Air 09/17/24 00:14 09/17/24 01:43 09/17/24 02:52 Temperature Pulse Rate 91 89 96 Respiratory Rate 22 H 15 16 Blood Pressure 168/98 H 180/100 H 164/84 H Pulse Oximetry 100 97 100 Oxygen Delivery 09/17/24 04:35 09/17/24 04:36 09/17/24 04:53 Temperature 36.6 C 36.6 C Pulse Rate 90 89 90 Respiratory Rate 18 18 Blood Pressure 158/84 H 158/84 H Pulse Oximetry 100 100 Oxygen Delivery 09/17/24 05:06 09/17/24 06:00 09/17/24 08:00 Temperature Pulse Rate 88 Respiratory Rate Blood Pressure Pulse Oximetry Oxygen Delivery Room Air Room Air 09/17/24 08:00 09/17/24 08:06 09/17/24 10:00 Temperature 36.8 C Pulse Rate 99 86 99 Respiratory Rate 20 Blood Pressure 160/93 H Pulse Oximetry 96 Oxygen Delivery Exam Narrative: Awake alert oriented appears stated age Const: General: comfortable and no acute distress HENMT: Face/Nose/Sinus: Normal nares present Eyes: General: appearance normal, both eyes and all related structures Sclera: sclerae normal Neck: Neck: supple and no JVD Chest: Other: No reproducible chest wall pain to palpation Resp: Effort & Inspection: normal respiratory effort Auscultation: diminished lung sounds Cardio: Rate: regular rate Rhythm: regular rhythm Heart sounds: no murmurs GI: Inspection: non-distended GI Palp: Yes Soft to palpation Auscultation: normal bowel sounds Skin: General skin exam: normal color Neuro: Speech: normal speech Motor exam (neuro): 5/5 motor strength present throughout Extrem: General: edema Other: 1 to 2+ bilateral extremity edema Psych: Mental Status: mental status grossly normal Affect: normal affect Results Labs and Meds 09/16/24 21:12 09/16/24 21:12 Lab results: Cardiac Enzymes 09/16/24 09/16/24 09/17/24 Range/Units 21:12 21:12 00:13 AST 34 (17-59) U/L Troponin I 0.368 H* Cancelled 0.640 H* D (0.000-0.034) ng/mL 09/17/24 Range/Units 03:06 AST (17-59) U/L Troponin I 0.905 H* D (0.000-0.034) ng/mL CBC 09/16/24 Range/Units 21:12 WBC 9.4 (4.5-10.0) K/mm3 RBC 4.62 (4.6-6.20) M/mm3 Hgb 12.7 L (14.0-18.0) g/dL Hct 40.1 L (42.0-52.0) % Plt Count 295 (150-375) k/mm3 Lymph # (Auto) 1.46 (0.9-3.2) K/mm3 Converse # (Auto) 0.8 H (0.1-0.6) K/mm3 Eos # (Auto) 0.2 (0-0.3) K/mm3 Baso # (Auto) 0.1 (0.0-0.1) K/mm3 Comprehensive Metabolic Panel 09/16/24 Range/Units 21:12 Sodium 135 L (137-145) mmol/L Potassium 4.4 (3.4-5.0) mmol/L Chloride 103 (98-107) mmol/L Carbon Dioxide 23 (22-30) mmol/L BUN 20 D (9-20) mg/dL Creatinine 1.17 (0.7-1.3) mg/dL Glucose 184 H (65-110) mg/dL Calcium 8.6 (8.4-10.2) mg/dL AST 34 (17-59) U/L ALT 44 (6-50) U/L Alkaline Phosphatase 107 (38-126) U/L Total Protein 7.0 (6.3-8.2) g/dL Albumin 3.9 (3.5-5.1) g/dL Intake and Output 09/16/24 09/17/24 09/17/24 23:59 07:59 15:59 Intake Total 200 240 Output Total 0 Balance 200 240 Intake: Oral 200 240 Output: Urine 0 Other: # Unmeasured Voids 1 Patient Weight 09/17/24 23:59 Weight 85.8 kg EKGs are personally reviewed and independently interpreted showing sinus rhythm left ventricular hypertrophy. He does say he does have secondary ST T wave abnormality secondary to LVH as well as lateral ST and T-wave abnormalities which may be related to ischemia. Abnormal ECG Echo 2023 2. Left ventricular chamber dimension is moderately enlarged. 3. Left ventricular systolic function is severely reduced, estimated at 25-30%. 4. There is moderate concentric increased left ventricular wall thickness. 5. The left ventricular diastolic function is grade I diastolic dysfunction. 6. E/e' 8 is minimally elevated. 7. Right ventricular systolic function is moderately reduced and with abnormal TAPSE 1.5 cm. 8. Left atrial chamber dimension is mildly enlarged. 9. There is trace aortic valve regurgitation. 10. There is mild mitral valve regurgitation. 11. No pulmonary hypertension, estimated pulmonary arterial systolic pressure is 20 mmHg.
[2024-09-17 11:35] LABS: Troponin I 0.695 ng/mL (0.000-0.034)
[2024-09-17 12:08] LABS: Glucose Point of Care 187 mg/dl (65-105)
[2024-09-17] MEDS: SPIRONOLACTONE 25 MG TABLET PO (13:01)
[2024-09-17 16:14] LABS: Glucose Point of Care 175 mg/dl (65-105)
[2024-09-17 21:01] LABS: Glucose Point of Care 203 mg/dl (65-105)
[2024-09-18] VITALS (18 sets, daily range): BP systolic 113–166; BP diastolic 67–99; PULSE 80–93; RESP 16–20; TEMP 36.4–37.1; O2SAT 92–100
--- NOTE | 2024-09-18 | ECHO_ITS ---
Patient Info Name: Quentin Sheets Age: 53 years : 1970 Gender: Male Ht: 68 in Wt: 189 lbs BSA: 2.05 m2 Exam Date: 09/18/2024 9:49 AM Exam Location: Echo Lab Patient Status: Inpatient Admit Date: 09/18/2024 Staff Ordering Physician: Bryce Tolbert MD Attending Provider: Elisa Donovan MD Referring Physician: Tomasz GONZALES; Exam Type: CA echo dop color flow w con Summary 1. Left ventricular chamber dimension is mildly enlarged. 2. Left ventricular systolic function is normal, estimated at 30-35%. 3. There is severely increased left ventricular wall thickness. 4. The left ventricular diastolic function is grade II diastolic dysfunction. 5. Left atrial chamber dimension is mildly enlarged. 6. There is mild aortic valve regurgitation. 7. There is trace mitral valve regurgitation. Left Ventricle Left ventricular chamber dimension is mildly enlarged. Left ventricular systolic function is normal, estimated at 30-35%. There is severely increased left ventricular wall thickness. The left ventricular diastolic function is grade II diastolic dysfunction. Right Ventricle Right ventricular chamber dimension is normal. Right ventricular systolic function is normal. Left Atria Left atrial chamber dimension is mildly enlarged. Right Atria Right atrial chamber dimension is normal. Aortic Valve The aortic valve is trileaflet. There is mild aortic valve sclerosis. There is no aortic valve stenosis. There is mild aortic valve regurgitation. Pulmonic Valve The pulmonic valve is normal. There is no pulmonic valve stenosis. There is no pulmonic regurgitation. Mitral Valve The mitral valve has normal leaflets. There is no mitral valve stenosis. There is trace mitral valve regurgitation. Tricuspid Valve The tricuspid valve leaflets are normal. There is no significant tricuspid valve stenosis. There is no tricuspid valve regurgitation. Pericardium/Pleural The pericardium appears normal. There is no pericardial effusion. Inferior Vena Cava Normal inferior vena cava with >50% collapse upon inspiration consistent with Empty right atrial pressure, 10 mmHg. Aorta The aortic root size at the sinus of Valsalva is normal. The prox ascending aorta size is normal. Left Ventricular Outflow Tract Name Value Normal LVOT 2D LVOT Diameter 2.07 cm LVOT Doppler LVOT Peak Gradient 3 mmHg LVOT Mean Gradient 2 mmHg LVOT VTI 17.98 cm LVOT VTI/AV VTI Ratio 0.62 LVOT Stroke Volume 60.46 ml LVOT CO 4.85 l/min LVOT CI 2.37 L/min/m2 Pulmonic Valve Name Value Normal RVOT Doppler RVOT Peak Gradient 1 mmHg PV Doppler PV Peak Gradient 2 mmHg Mitral Valve Name Value Normal MV Doppler MV Peak Gradient 4 mmHg MV Mean Gradient 1 mmHg MV Decel Jerome 742.45 cm/s2 MV PHT 0 s MV Area (PHT) 6.01 cm2 4.00-5.00 MV Area (Cont Eq VTI) 3.45 cm2 MV Diastolic Function MV E Peak Velocity 93.73 cm/s MV A Peak Velocity 63.57 cm/s MV E/A 1.47 MV Decel Time 0 s MV Annular TDI MV E/e' (Septal) 21.72 <=8.00 MV E/e' (Lateral) 20.22 <=8.00 MV E/e' (Average) 20.97 Tricuspid Valve Name Value Normal Estimated PAP/RSVP RA Pressure 10 mmHg <=5 Aorta Name Value Normal Ascending Aorta Ao Root Diameter (MM) 4.23 cm Ao Root Diam Index (MM) 2.06 cm/m2 Aortic Valve Name Value Normal AV Doppler AV Peak Velocity 162.36 cm/s AV Peak Gradient 11 mmHg AV Mean Gradient 6 mmHg AV VTI 29.10 cm AV Area (Cont Eq VTI) 2.08 cm2 >=3.00 AV Area (Cont Eq Jeronimo) 1.86 cm2 AV Regurgitation 2D LVOT Area 3.36 cm2 Ventricles Name Value Normal LV Dimensions 2D/MM IVS Diastolic Thickness (2D) 1.83 cm 0.60-1.00 LVID Diastole (2D) 5.91 cm 4.20-5.80 LVIW Diastolic Thickness (2D) 1.61 cm 0.60-1.00 LVID Systole (2D) 5.19 cm 2.50-4.00 LVOT Diameter 2.07 cm LV Mass (2D Cubed) 506.44 g 88.00-224.00 LV Mass Index (2D Cubed) 0.02 g/cm2 0.00-0.01 Relative Wall Thickness (2D) 0.54 LV Fractional Shortening/Ejection Fraction 2D/MM LV Fractional Shortening (2D) 15 % 25-43 LV EF (2D Teicholz) 31 % 52-72 LV Diastolic Volume (4C MOD) 139.33 ml LV EF (4C MOD) 43 % LV Diastolic Volume (2C MOD) 138.64 ml LV EF (2C MOD) 49 % LV Diastolic Volume (BP MOD) 139.94 ml 62.00-150.00 LV Diastolic Volume Index (BP MOD) 0.07 l/m2 0.03-0.07 LV Systolic Volume (BP MOD) 75.38 ml 21.00-61.00 LV Systolic Volume Index (BP MOD) 0.04 l/m2 0.01-0.03 LV EF (BP MOD) 46 % 52-72 LV Diastolic Length (4C) 8.37 cm LV Systolic Length (4C) 7.34 cm LV Stroke Volume (4C MOD) 59.52 ml Atria Name Value Normal LA Dimensions LA Dimension (MM) 3.43 cm 3.00-4.10 LA Volume (4C A-L) 57.04 ml LA Volume (BP A-L) 71.93 ml RA Dimensions RA Area (4C) 14.25 cm2 <=18.00 Report Signatures
[2024-09-18 05:05] LABS: Alanine Aminotransferase 39 U/L (6-50); Albumin Level 3.6 g/dL (3.5-5.1); Alkaline Phosphatase 96 U/L (38-126); Anion Gap 4 mmol/L (4-12); Aspartate Amino Transferase 29 U/L (17-59); Bilirubin,Total 1.1 mg/dL (0.2-1.3); Blood Urea Nitrogen 20 mg/dL (9-20); Calcium 8.5 mg/dL (8.4-10.2); Carbon Dioxide 26 mmol/L (22-30); Chloride 105 mmol/L (98-107); Estimated CRCL calculation 68 ml/min; Estimated Glomerular Filt Rate > 60; Glucose 139 mg/dL (65-110); Sodium 135 mmol/L (137-145)
[2024-09-18 05:22] LABS: Hemoglobin A1C 7.4 % (<5.7)
[2024-09-18 08:13] LABS: Glucose Point of Care 144 mg/dl (65-105)
[2024-09-18] MEDS: SPIRONOLACTONE 25 MG TABLET PO (08:13)
[2024-09-18] MEDS: ATORVASTATIN 40 MG TABLET PO (08:13)
[2024-09-18] MEDS: lisinopriL 10 MG TABLET PO ×2 (08:13→17:01)
[2024-09-18] MEDS: EMPAGLIFLOZIN 25 MG TABLET PO (08:13)
[2024-09-18] MEDS: ASPIRIN 81 MG ENTERIC TABLET PO (08:14)
[2024-09-18] MEDS: ENOXAPARIN 40 MG/0.4 ML SYRINGE SUB-Q (08:14)
[2024-09-18] MEDS: FUROSEMIDE INJ 40 MG/4 ML VIAL IV PUSH (08:14)
--- NOTE | 2024-09-18 09:11 | PM.IMPN ---
Progress Note: A&P Assessment and Plan (1) Hypertension: Code(s): I10 - Essential (primary) hypertension Status: Acute (2) Hypertensive emergency: Code(s): I16.1 - Hypertensive emergency Status: Acute (3) Elevated troponin: Code(s): R79.89 - Other specified abnormal findings of blood chemistry Status: Acute (4) Cardiomyopathy: Code(s): I42.9 - Cardiomyopathy, unspecified Status: Acute (5) Acute on chronic systolic (congestive) heart failure: Code(s): I50.23 - Acute on chronic systolic (congestive) heart failure Status: Acute (6) Hypertension associated with diabetes: Code(s): E11.59 - Type 2 diabetes mellitus with other circulatory complications; I15.2 - Hypertension secondary to endocrine disorders Status: Acute (7) Hyperlipidemia associated with type 2 diabetes mellitus: Code(s): E11.69 - Type 2 diabetes mellitus with other specified complication; E78.5 - Hyperlipidemia, unspecified Status: Acute Plan 53 years old with past medical history of hypertension and congestive heart failure was admitted to the emergency room the complaint of having increased swelling in the lower extremity and shortness of breath going on for the last 1 week. According to the patient he is noncompliant with his medication and is not taking his water pill for the last few days. In the ER patient patient was high and patient was found to be in acute heart failure. Patient was given Lasix and hydralazine. Patient EKG shows nonspecific EKG changes Cardiology was consulted who decided to put the patient acute care for further management. (1) Acute on chronic combined heart failure: Code(s): I50.23 - Acute on chronic systolic (congestive) heart failure Status: Acute Assessment and Plan: The patient has chronic systolic and diastolic heart failure Echocardiogram February 15 showed Left ventricular systolic function is severely reduced, estimated at 25-30%. And The left ventricular diastolic function is grade I diastolic dysfunction. Elevated BNP 4740 upon arrival. Chest x-ray shows pulmonary congestion and basilar atelectasis Strict and I&Os. Cardiology consult. Switch from oral Lasix to IV Lasix 40 mg b.i.d. IV push Continuous parietal 25 mg daily p.o. Continue Jardiance 25 mg daily p.o. Pending echocardiogram (2) Elevated troponin: Code(s): R79.89 - Other specified abnormal findings of blood chemistry Status: Acute Assessment and Plan: Possible due to acute heart failure, demand ischemia Patient has no chest pain Continue aspirin 81 mg daily p.o., received 34 mg once in the ED, continue Lipitor 40 mg daily p.o. 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 and q.h.s. Diabetic Education (4) Hypertensive emergency: Code(s): I16.1 - Hypertensive emergency Status: Acute Assessment and Plan: Continue home medication lisinopril 20 mg daily p.o. Started IV Lasix 40 mg b.i.d. IV push Patient is on hydralazine IV p.r.n. Monitor blood pressure closely. Blood pressure is better controlled Hyperlipidemia Continue Lipitor 40 mg daily p.o. Smoking history: Code(s): Z87.891 - Personal history of nicotine dependence Status: Acute Assessment and Plan: Smoking Education provided and patient patient to quit smoking. Plan Patient is admitted acute care is full code patient. Cardiology consult. DVT prophylaxis started. Code status full Subjective Date/time seen: 09/18/24 09:11 Interval history: Saw exam patient today, patient denies chest pain, headache, blood pressure is not well controlled. Troponin positive is trending down.. Labs reviewed Exam Narrative: APPEARANCE: Well appearing, no pain, no distress, well-nourished. HEAD: normocephalic, atraumatic. EYES: PERRLA/EOMI, conjunctivae clear. NOSE: Normal no drainage EARS:TMS clear with good light reflex. THROAT: Pharynx clear, no exudate. NECK: Supple. No adenopathy, no masses. RESPIRATORY: Airway patent, respirations nonlabored. Clear to auscultation bilaterally, no rales, rhonchi, wheezing. CARDIOVASCULAR: Regular rate and rhythm without murmurs rubs or gallops. ABDOMINAL: Soft, nontender, nondistended, normal bowel sounds MUSCULOSKELETAL: Bilateral lower extremity +2 pitting in NEURO: Alert. Cranial nerves II through XII intact. Grossly intact SKIN: Warm, dry. Normal Color Objective Data Vital Signs Vital Signs: Vital Signs - 24 hr 09/17/24 10:00 09/17/24 12:00 09/17/24 12:00 Temperature Pulse Rate 99 90 Respiratory Rate Blood Pressure Pulse Oximetry Oxygen Delivery Room Air 09/17/24 12:22 09/17/24 14:00 09/17/24 16:00 Temperature 97.8 F Pulse Rate 90 89 Respiratory Rate 18 Blood Pressure 153/90 H Pulse Oximetry 97 Oxygen Delivery Room Air 09/17/24 16:00 09/17/24 16:20 09/17/24 18:00 Temperature 97.9 F Pulse Rate 91 88 92 Respiratory Rate 18 Blood Pressure 154/86 H Pulse Oximetry 96 Oxygen Delivery 09/17/24 20:00 09/17/24 20:00 09/17/24 20:00 Temperature 98.7 F Pulse Rate 93 92 Respiratory Rate 18 Blood Pressure 135/86 Pulse Oximetry 95 Oxygen Delivery Room Air 09/17/24 22:00 09/17/24 23:47 09/17/24 23:55 Temperature 98.8 F Pulse Rate 88 85 Respiratory Rate 18 Blood Pressure 131/69 Pulse Oximetry 95 95 Oxygen Delivery Room Air 09/18/24 00:00 09/18/24 02:00 09/18/24 04:00 Temperature 98.7 F Pulse Rate 86 86 85 Respiratory Rate 16 Blood Pressure 156/87 H Pulse Oximetry 94 Oxygen Delivery 09/18/24 04:00 09/18/24 04:00 09/18/24 06:00 Temperature Pulse Rate 93 86 Respiratory Rate Blood Pressure Pulse Oximetry 94 Oxygen Delivery Room Air 09/18/24 07:33 Temperature 97.8 F Pulse Rate 81 Respiratory Rate 18 Blood Pressure 155/94 H Pulse Oximetry 93 Oxygen Delivery Intake/Output Intake/Output: Intake & Output 09/15/24 09/16/24 09/17/24 09/18/24 23:59 23:59 23:59 23:59 Intake Total 1790 375 Output Total 2650 500 Balance -860 -125 Meds/Results Medications: Active Medications Generic Name Dose Route Start Last Admin Trade Name Freq PRN Reason Stop Dose Admin Aspirin 81 mg 09/18/24 09:00 09/18/24 08:14 Aspirin 81 Mg Enteric Tablet PO 81 mg QAM JOHN Administration Atorvastatin Calcium 40 mg 09/18/24 09:00 09/18/24 08:13 Atorvastatin 40 Mg Tablet PO 40 mg DAILY JOHN Administration Dextrose 12.5 gm 09/17/24 07:47 Dextrose 50% 25 Gm/50 Ml Syringe IV PUSH PRN PRN Hypoglycemia Protocol Empagliflozin 25 mg 09/18/24 09:00 09/18/24 08:13 Empagliflozin 25 Mg Tablet PO 25 mg DAILY JOHN Administration Enoxaparin Sodium 40 mg 09/17/24 09:00 09/18/24 08:14 Enoxaparin 40 Mg/0.4 Ml Syringe SUB-Q 40 mg DAILY JOHN Administration Furosemide 40 mg 09/17/24 09:00 09/18/24 08:14 Furosemide Inj 40 Mg/4 Ml Vial IV PUSH 40 mg Q12HR JOHN Administration Glucagon 1 mg 09/17/24 07:47 Glucagon For Inj 1 Mg Vial IM PRN PRN Hypoglycemia Protocol Glucose 15 gm 09/17/24 07:47 Glucose Oral Gel 15 Gm Of Glucse In 37.5 Gm Tube PO PRN PRN Hypoglycemia Protocol Dextrose 1,000 mls @ 100 mls/hr 09/17/24 07:47 Dextrose 5% 1,000 Ml IVPB PRN PRN Hypoglycemia Protocol Lisinopril 10 mg 09/17/24 09:00 09/18/24 08:13 Lisinopril 10 Mg Tablet PO 10 mg BID JOHN Administration Perflutren Lipid Microsphere 0 ml 09/17/24 07:45 Perflutren Lipid Microspheres 1.5 Ml Vial Diluted To 10 Ml Total Volume IV PUSH 09/20/24 07:47 ONCE PRN adequate visualization Protocol Spironolactone 25 mg 09/17/24 11:05 09/18/24 08:13 Spironolactone 25 Mg Tablet PO 25 mg QAM JOHN Administration Radiology Results: ITS Impressions Chest X-Ray 09/16/24 21:34 IMPRESSION: Possible Right basilar atelectasis versus pneumonia with possible effusion. Labs Labs: Laboratory Results - last 24 hr 09/17/24 09/17/24 09/17/24 10:55 11:38 16:04 Sodium Potassium Chloride Carbon Dioxide Anion Gap BUN Creatinine Estim Creat Clear Calc Estimated GFR Glucose POC Capillary Glucose 187 H 175 H Hemoglobin A1c Calcium Total Bilirubin AST ALT Alkaline Phosphatase Troponin I 0.695 H* D Total Protein Albumin 09/17/24 09/18/24 09/18/24 20:35 04:34 07:20 Sodium 135 L Potassium 4.0 Chloride 105 Carbon Dioxide 26 Anion Gap 4 BUN 20 Creatinine 1.10 Estim Creat Clear Calc 68 Estimated GFR > 60 Glucose 139 H POC Capillary Glucose 203 H 144 H Hemoglobin A1c 7.4 H Calcium 8.5 Total Bilirubin 1.1 AST 29 ALT 39 Alkaline Phosphatase 96 Troponin I Total Protein 7.0 Albumin 3.6
[2024-09-18 09:25] LABS: Hematocrit 37.7 % (42.0-52.0); Hemoglobin 12.3 g/dL (14.0-18.0); Mean Corpuscular HGB Conc 32.6 g/dl (32-36); Mean Corpuscular Hemoglobin 28.1 pg (26-34); Mean Corpuscular Volume 86.1 fl (80-100); Mean Platelet Volume 10.1 fl (7.4-10.4); Platelet Count Result 287 k/mm3 (150-375); Red Blood Count 4.38 M/mm3 (4.6-6.20); Red Cell Distribution Width 15.8 % (11.5-14.5); White Blood Count 10.3 K/mm3 (4.5-10.0)
[2024-09-18 09:43] LABS: Magnesium 1.9 mg/dL (1.6-2.3)
--- NOTE | 2024-09-18 09:53 | P.PNCA_ITS ---
Progress Note: A&P Assessment and Plan (1) Acute on chronic systolic (congestive) heart failure: Code(s): I50.23 - Acute on chronic systolic (congestive) heart failure Status: Acute Assessment and Plan: Known ejection fraction here of 25-30%. States that he was catheterization that [place] and was told that he did not have any obstructive coronary disease. He has acute exacerbation due to running out of several his medications. * Will shift to p.o. furosemide today * Check BMP in a.m. * Continue GDMT with Jardiance, spironolactone, lisinopril. * Uncertain why he is not on a beta-julia but if he can tolerate and if no contraindication, would add carvedilol. * Anticipate discharge tomorrow on lower maintenance dose of furosemide if he remains clinically stable (2) Elevated troponin: Code(s): R79.89 - Other specified abnormal findings of blood chemistry Status: Acute Assessment and Plan: Continue to trend troponins. Likely secondary to hypertensive emergency and heart failure EKG is abnormal and will try to obtain catheterization records from [facility] to confirm no significant CAD. Troponin now. 2D echocardiogram with Doppler will also be reordered. Aspirin 81 mg p.o. daily to be started in the interim (3) Hypertensive emergency: Code(s): I16.1 - Hypertensive emergency Status: Acute Assessment and Plan: Improving. P.r.n. hydralazine (4) Hypertension associated with diabetes: Code(s): E11.59 - Type 2 diabetes mellitus with other circulatory complications; I15.2 - Hypertension secondary to endocrine disorders Status: Acute Assessment and Plan: As detailed above (5) Smoking history: Code(s): Z87.891 - Personal history of nicotine dependence Status: Acute Assessment and Plan: Tobacco abuse counseling performed (6) Hyperlipidemia associated with type 2 diabetes mellitus: Code(s): E11.69 - Type 2 diabetes mellitus with other specified complication; E78.5 - Hyperlipidemia, unspecified Status: Acute Assessment and Plan: Atorvastatin 40 mg daily (7) Cardiomyopathy: Code(s): I42.9 - Cardiomyopathy, unspecified Status: Acute Assessment and Plan: Previously severe with EF 25-30%. Probably nonischemic. Repeat echo is pending Subjective Date/time seen: 09/18/24 09:53 Interval history: Cardiology follow up for CHF He feels well today. No shortness of breath, chest pain, palpitations. Edema is improving. Review of Systems Review of Systems: All systems reviewed & are unremarkable except as noted in HPI and below Constitutional: Constitutional: Denies body ache(s), Denies excessive sweating and Denies headache(s) Eyes: Eyes: Denies blurry vision ENT: Denies headache(s), Denies lip swelling and Denies epistaxis Cardiovascular: Cardiovascular: Denies chest pain, Reports leg edema, Reports dyspnea and Reports dyspnea on exertion Respiratory: Respiratory: Reports dyspnea and Reports dyspnea on exertion Gastrointestinal: Gastrointestinal: Denies abdominal pain Genitourinary: Genitourinary: Denies hematuria Musculoskeletal: Musculoskeletal: Denies back pain Integumentary/Breasts: Skin/Breast: Denies skin pain Neurologic: Denies headache(s) Psychiatric: Psychiatric: Denies anxiety Endocrine: Endocrine: Denies excessive sweating Hematologic/Lymphatic: Hematologic/Lymphatic: Denies easy bleeding Allergic/Immunologic: Allergic/Immunologic: Denies lip swelling Exam Narrative: Awake alert oriented appears stated age Const: General: comfortable and no acute distress HENMT: Face/Nose/Sinus: Normal nares present Eyes: General: appearance normal, both eyes and all related structures Sclera: sclerae normal Neck: Neck: supple and no JVD Chest: Other: No reproducible chest wall pain to palpation Resp: Effort & Inspection: normal respiratory effort Auscultation: diminished lung sounds Cardio: Rate: regular rate Rhythm: regular rhythm Heart sounds: no murmurs GI: Inspection: non-distended Auscultation: normal bowel sounds Skin: General skin exam: normal color Neuro: Speech: normal speech Motor exam (neuro): 5/5 motor strength present throughout Extrem: General: edema Other: Mild bilateral pretibial and pedal edema Psych: Mental Status: mental status grossly normal Affect: normal affect Objective Data Vital Signs Vital Signs: Vital Signs - 24 hr 09/17/24 10:00 09/17/24 12:00 09/17/24 12:00 Temperature Pulse Rate 99 90 Respiratory Rate Blood Pressure Pulse Oximetry Oxygen Delivery Room Air 09/17/24 12:22 09/17/24 14:00 09/17/24 16:00 Temperature 36.6 C Pulse Rate 90 89 Respiratory Rate 18 Blood Pressure 153/90 H Pulse Oximetry 97 Oxygen Delivery Room Air 09/17/24 16:00 09/17/24 16:20 09/17/24 18:00 Temperature 36.6 C Pulse Rate 91 88 92 Respiratory Rate 18 Blood Pressure 154/86 H Pulse Oximetry 96 Oxygen Delivery 09/17/24 20:00 09/17/24 20:00 09/17/24 20:00 Temperature 37.1 C Pulse Rate 93 92 Respiratory Rate 18 Blood Pressure 135/86 Pulse Oximetry 95 Oxygen Delivery Room Air 09/17/24 22:00 09/17/24 23:47 09/17/24 23:55 Temperature 37.1 C Pulse Rate 88 85 Respiratory Rate 18 Blood Pressure 131/69 Pulse Oximetry 95 95 Oxygen Delivery Room Air 09/18/24 00:00 09/18/24 02:00 09/18/24 04:00 Temperature 37.1 C Pulse Rate 86 86 85 Respiratory Rate 16 Blood Pressure 156/87 H Pulse Oximetry 94 Oxygen Delivery 09/18/24 04:00 09/18/24 04:00 09/18/24 06:00 Temperature Pulse Rate 93 86 Respiratory Rate Blood Pressure Pulse Oximetry 94 Oxygen Delivery Room Air 09/18/24 07:33 09/18/24 08:00 09/18/24 08:00 Temperature 36.6 C Pulse Rate 81 88 Respiratory Rate 18 Blood Pressure 155/94 H Pulse Oximetry 93 Oxygen Delivery Room Air Intake/Output Intake/Output: Intake & Output 09/15/24 09/16/24 09/17/24 09/18/24 23:59 23:59 23:59 23:59 Intake Total 1790 615 Output Total 2650 500 Balance -860 115 Meds/Results Medications: Active Medications Generic Name Dose Route Start Last Admin Trade Name Freq PRN Reason Stop Dose Admin Aspirin 81 mg 09/18/24 09:00 09/18/24 08:14 Aspirin 81 Mg Enteric Tablet PO 81 mg QAM JOHN Administration Dextrose 12.5 gm 09/17/24 07:47 Dextrose 50% 25 Gm/50 Ml Syringe IV PUSH PRN PRN Hypoglycemia Protocol Empagliflozin 25 mg 09/18/24 09:00 09/18/24 08:13 Empagliflozin 25 Mg Tablet PO 25 mg DAILY JOHN Administration Enoxaparin Sodium 40 mg 09/17/24 09:00 09/18/24 08:14 Enoxaparin 40 Mg/0.4 Ml Syringe SUB-Q 40 mg DAILY JOHN Administration Furosemide 40 mg 09/17/24 09:00 09/18/24 08:14 Furosemide Inj 40 Mg/4 Ml Vial IV PUSH 40 mg Q12HR JOHN Administration Glucagon 1 mg 09/17/24 07:47 Glucagon For Inj 1 Mg Vial IM PRN PRN Hypoglycemia Protocol Glucose 15 gm 09/17/24 07:47 Glucose Oral Gel 15 Gm Of Glucse In 37.5 Gm Tube PO PRN PRN Hypoglycemia Protocol Hydralazine HCl 10 mg 09/18/24 09:28 Hydralazine Hcl 20 Mg/Ml Vial IV PUSH Q6H PRN Blood Pressure - High Dextrose 1,000 mls @ 100 mls/hr 09/17/24 07:47 Dextrose 5% 1,000 Ml IVPB PRN PRN Hypoglycemia Protocol Insulin Glargine 24 units 09/18/24 21:00 Insulin Glargine (*Bkc) 100 Units/Ml SUB-Q HS JOHN Lisinopril 10 mg 09/17/24 09:00 09/18/24 08:13 Lisinopril 10 Mg Tablet PO 10 mg BID JOHN Administration Metformin HCl 500 mg 09/18/24 17:00 Metformin Hcl 500 Mg Tablet PO BIDWM JOHN Perflutren Lipid Microsphere 0 ml 09/17/24 07:45 Perflutren Lipid Microspheres 1.5 Ml Vial Diluted To 10 Ml Total Volume IV PUSH 09/20/24 07:47 ONCE PRN adequate visualization Protocol Spironolactone 25 mg 09/17/24 11:05 09/18/24 08:13 Spironolactone 25 Mg Tablet PO 25 mg QAM JOHN Administration Radiology Results: ITS Impressions Chest X-Ray 09/16/24 21:34 IMPRESSION: Possible Right basilar atelectasis versus pneumonia with possible effusion. Labs Labs: Laboratory Results - last 24 hr 09/17/24 09/17/24 09/17/24 10:55 11:38 16:04 WBC RBC Hgb Hct MCV MCH MCHC RDW Plt Count MPV Sodium Potassium Chloride Carbon Dioxide Anion Gap BUN Creatinine Estim Creat Clear Calc Estimated GFR Glucose POC Capillary Glucose 187 H 175 H Hemoglobin A1c Calcium Magnesium Total Bilirubin AST ALT Alkaline Phosphatase Troponin I 0.695 H* D Total Protein Albumin 09/17/24 09/18/24 09/18/24 20:35 04:31 04:34 WBC 10.3 H RBC 4.38 L Hgb 12.3 L Hct 37.7 L MCV 86.1 MCH 28.1 MCHC 32.6 RDW 15.8 H Plt Count 287 MPV 10.1 Sodium 135 L Potassium 4.0 Chloride 105 Carbon Dioxide 26 Anion Gap 4 BUN 20 Creatinine 1.10 Estim Creat Clear Calc 68 Estimated GFR > 60 Glucose 139 H POC Capillary Glucose 203 H Hemoglobin A1c 7.4 H Calcium 8.5 Magnesium 1.9 Total Bilirubin 1.1 AST 29 ALT 39 Alkaline Phosphatase 96 Troponin I Total Protein 7.0 Albumin 3.6 09/18/24 07:20 WBC RBC Hgb Hct MCV MCH MCHC RDW Plt Count MPV Sodium Potassium Chloride Carbon Dioxide Anion Gap BUN Creatinine Estim Creat Clear Calc Estimated GFR Glucose POC Capillary Glucose 144 H Hemoglobin A1c Calcium Magnesium Total Bilirubin AST ALT Alkaline Phosphatase Troponin I Total Protein Albumin Quality VTE Prophylaxis VTE prophylaxis: pharmacologic ordered
[2024-09-18] MEDS: PERFLUTREN LIPID MICROSPHERES 1.5 ML VIAL DILUTED TO 10 ML TOTAL VOLUME IV PUSH (10:15)
[2024-09-18 11:49] LABS: Cholesterol 111 mg/dL (0-200); HDL Direct 21 mg/dL; Triglycerides 98 mg/dL (<150)
[2024-09-18 11:59] LABS: LDL Cholesterol Direct 66 mg/dL
[2024-09-18 12:06] LABS: Glucose Point of Care 132 mg/dl (65-105)
[2024-09-18 12:08] LABS: Troponin I 0.433 ng/mL (0.000-0.034)
--- NOTE | 2024-09-18 12:14 | PC.NURSE ---
Notified Dr Worley and Dayana Sanches of trop of 0.433. Also notified of PT's HTN, last BP 166/99. Order from Dayana Sanches to give PRN IV hydralazine and provider will adjust current medications. Order read back and verified.
[2024-09-18] MEDS: hydrALAZINE HCL 20 MG/ML VIAL 10 MG IV PUSH (12:25)
--- NOTE | 2024-09-18 13:01 | IVDEFINITY ---
Prior to administration of IV Definity the patient was educated on the risks and benefits of the imaging enhancing agent including potential adverse side effects. The patient verbalized understanding. Allergies were verified. No exclusion criteria were identified and at least one of the following inclusion criteria were met: 1) physician request, 2) patient technically difficult to image (per the [place] [employer] guidelines of two or more segments not discernable within the apical view), or 3) questionable left ventricular function. ?
[2024-09-18 16:10] LABS: Glucose Point of Care 100 mg/dl (65-105)
[2024-09-18] MEDS: metFORMIN HCL 500 MG TABLET PO (17:01)
[2024-09-18] MEDS: FUROSEMIDE 20 MG TABLET 60 MG PO (17:01)
--- NOTE | 2024-09-18 17:57 | PC.NURSE ---
Clarified with Dr Worley that lipitor is to be continued as PT takes at home and to hold metformin.
[2024-09-18] MEDS: INSULIN GLARGINE (*BKC) 100 UNITS/ML 24 UNITS SUB-Q (20:30)
[2024-09-18] MEDS: carvediloL 6.25 MG TABLET PO (20:30)
[2024-09-18 20:37] LABS: Glucose Point of Care 195 mg/dl (65-105)
[2024-09-19] VITALS (11 sets, daily range): BP systolic 131–138; BP diastolic 84–87; PULSE 75–81; RESP 16; TEMP 36.6–37; O2SAT 95–100
[2024-09-19 07:55] LABS: Glucose Point of Care 115 mg/dl (65-105)
[2024-09-19] MEDS: ASPIRIN 81 MG ENTERIC TABLET PO (08:54)
[2024-09-19] MEDS: lisinopriL 10 MG TABLET PO ×2 (08:55→16:54)
[2024-09-19] MEDS: carvediloL 6.25 MG TABLET PO (08:55)
[2024-09-19] MEDS: FUROSEMIDE 20 MG TABLET 60 MG PO ×2 (08:56→16:54)
[2024-09-19] MEDS: ENOXAPARIN 40 MG/0.4 ML SYRINGE SUB-Q (08:56)
[2024-09-19] MEDS: SPIRONOLACTONE 25 MG TABLET PO (08:57)
[2024-09-19] MEDS: EMPAGLIFLOZIN 25 MG TABLET PO (08:59)
--- NOTE | 2024-09-19 10:26 | PM.PNCARD ---
Progress Note: A&P Assessment and Plan (1) Acute on chronic systolic (congestive) heart failure: Code(s): I50.23 - Acute on chronic systolic (congestive) heart failure Status: Acute Assessment and Plan: Known ejection fraction here of 25-30%. States that he was catheterization that [place] and was told that he did not have any obstructive coronary disease. He has acute exacerbation due to running out of several his medications. Will shift to p.o. furosemide today Check BMP in a.m. Continue GDMT with Jardiance, spironolactone, lisinopril, coreg OK for discharge today from cardiac standpoint. Will arrange follow up in our office. (2) Elevated troponin: Code(s): R79.89 - Other specified abnormal findings of blood chemistry Status: Acute Assessment and Plan: Downtrended. Not related to ACS, this is secondary to CHF. Echo showed LV dysfunction with EF slightly improved from previous, no RWMA. (3) Hypertensive emergency: Code(s): I16.1 - Hypertensive emergency Status: Acute Assessment and Plan: Blood pressure is at goal (4) Hypertension associated with diabetes: Code(s): E11.59 - Type 2 diabetes mellitus with other circulatory complications; I15.2 - Hypertension secondary to endocrine disorders Status: Acute Assessment and Plan: As detailed above (5) Smoking history: Code(s): Z87.891 - Personal history of nicotine dependence Status: Acute Assessment and Plan: Tobacco abuse counseling performed (6) Hyperlipidemia associated with type 2 diabetes mellitus: Code(s): E11.69 - Type 2 diabetes mellitus with other specified complication; E78.5 - Hyperlipidemia, unspecified Status: Acute Assessment and Plan: Atorvastatin 40 mg daily (7) Cardiomyopathy: Code(s): I42.9 - Cardiomyopathy, unspecified Status: Acute Assessment and Plan: Previously severe with EF 25-30%. Probably nonischemic. Repeat echo shows EF 30-35% Subjective Date/time seen: 09/19/24 10:26 Interval history: Cardiology follow up for CHF He feels well today. No shortness of breath, chest pain, palpitations. Edema is improving. 09/19/2024: Continues to feel well today. Swelling has resolved. No shortness of breath or chest pain. Review of Systems Review of Systems: All systems reviewed & are unremarkable except as noted in HPI and below Constitutional: Constitutional: Denies body ache(s), Denies excessive sweating and Denies headache(s) Eyes: Eyes: Denies blurry vision ENT: Denies headache(s), Denies lip swelling and Denies epistaxis Cardiovascular: Cardiovascular: Denies chest pain, Reports leg edema, Reports dyspnea and Reports dyspnea on exertion Respiratory: Respiratory: Reports dyspnea and Reports dyspnea on exertion Gastrointestinal: Gastrointestinal: Denies abdominal pain Genitourinary: Genitourinary: Denies hematuria Musculoskeletal: Musculoskeletal: Denies back pain Integumentary/Breasts: Skin/Breast: Denies skin pain Neurologic: Denies headache(s) Psychiatric: Psychiatric: Denies anxiety Endocrine: Endocrine: Denies excessive sweating Hematologic/Lymphatic: Hematologic/Lymphatic: Denies easy bleeding Allergic/Immunologic: Allergic/Immunologic: Denies lip swelling Exam Narrative: Awake alert oriented appears stated age Const: General: comfortable and no acute distress HENMT: Face/Nose/Sinus: Normal nares present Eyes: General: appearance normal, both eyes and all related structures Sclera: sclerae normal Neck: Neck: supple and no JVD Chest: Other: No reproducible chest wall pain to palpation Resp: Effort & Inspection: normal respiratory effort Auscultation: diminished lung sounds Cardio: Rate: regular rate Rhythm: regular rhythm Heart sounds: no murmurs GI: Inspection: non-distended Auscultation: normal bowel sounds Skin: General skin exam: normal color Neuro: Speech: normal speech Motor exam (neuro): 5/5 motor strength present throughout Extrem: General: edema Other: Mild bilateral pretibial and pedal edema Psych: Mental Status: mental status grossly normal Affect: normal affect Objective Data Vital Signs Vital Signs: Vital Signs - 24 hr 09/18/24 11:49 09/18/24 12:00 09/18/24 12:00 Temperature Pulse Rate 88 85 Respiratory Rate 20 Blood Pressure 166/99 H Pulse Oximetry 100 Oxygen Delivery Room Air 09/18/24 14:00 09/18/24 15:36 09/18/24 16:00 Temperature 36.6 C Pulse Rate 88 86 Respiratory Rate 18 Blood Pressure 154/95 H Pulse Oximetry 97 Oxygen Delivery Room Air 09/18/24 16:00 09/18/24 18:00 09/18/24 19:37 Temperature 36.4 C L Pulse Rate 80 88 88 Respiratory Rate 20 Blood Pressure 149/90 H Pulse Oximetry 95 Oxygen Delivery 09/18/24 20:00 09/18/24 20:00 09/18/24 20:30 Temperature Pulse Rate 89 88 Respiratory Rate Blood Pressure Pulse Oximetry Oxygen Delivery Room Air 09/18/24 22:00 09/18/24 23:31 09/18/24 23:56 Temperature 37.1 C Pulse Rate 84 80 Respiratory Rate 20 Blood Pressure 113/67 Pulse Oximetry 92 Oxygen Delivery Room Air 09/19/24 00:00 09/19/24 02:00 09/19/24 04:00 Temperature Pulse Rate 81 81 Respiratory Rate Blood Pressure Pulse Oximetry Oxygen Delivery Room Air 09/19/24 04:00 09/19/24 04:08 09/19/24 06:00 Temperature 36.7 C Pulse Rate 75 78 77 Respiratory Rate 16 Blood Pressure 136/86 Pulse Oximetry 95 Oxygen Delivery 09/19/24 07:46 09/19/24 08:45 09/19/24 08:55 Temperature 37.0 C Pulse Rate 76 79 79 Respiratory Rate 16 Blood Pressure 138/87 Pulse Oximetry 96 Oxygen Delivery Intake/Output Intake/Output: Intake & Output 09/16/24 09/17/24 09/18/24 09/19/24 23:59 23:59 23:59 23:59 Intake Total 1790 2295 290 Output Total 2650 3150 Balance -860 -855 290 Meds/Results Medications: Active Medications Generic Name Dose Route Start Last Admin Trade Name Freq PRN Reason Stop Dose Admin Aspirin 81 mg 09/18/24 09:00 09/19/24 08:54 Aspirin 81 Mg Enteric Tablet PO 81 mg QAM [facility] Administration Atorvastatin Calcium 40 mg 09/19/24 21:00 Atorvastatin 40 Mg Tablet PO [facility] Carvedilol 6.25 mg 09/18/24 21:00 09/19/24 08:55 Carvedilol 6.25 Mg Tablet PO 6.25 mg Q12HR JOHN Administration Dextrose 12.5 gm 09/17/24 07:47 Dextrose 50% 25 Gm/50 Ml Syringe IV PUSH PRN PRN Hypoglycemia Protocol Empagliflozin 25 mg 09/18/24 09:00 09/19/24 08:59 Empagliflozin 25 Mg Tablet PO 25 mg DAILY JOHN Administration Enoxaparin Sodium 40 mg 09/17/24 09:00 09/19/24 08:56 Enoxaparin 40 Mg/0.4 Ml Syringe SUB-Q 40 mg DAILY JOHN Administration Furosemide 60 mg 09/18/24 17:00 09/19/24 08:56 Furosemide 20 Mg Tablet PO 60 mg BID JOHN Administration Glucagon 1 mg 09/17/24 07:47 Glucagon For Inj 1 Mg Vial IM PRN PRN Hypoglycemia Protocol Glucose 15 gm 09/17/24 07:47 Glucose Oral Gel 15 Gm Of Glucse In 37.5 Gm Tube PO PRN PRN Hypoglycemia Protocol Hydralazine HCl 10 mg 09/18/24 09:28 09/18/24 12:25 Hydralazine Hcl 20 Mg/Ml Vial IV PUSH 10 mg Q6H PRN Administration Blood Pressure - High Dextrose 1,000 mls @ 100 mls/hr 09/17/24 07:47 Dextrose 5% 1,000 Ml IVPB PRN PRN Hypoglycemia Protocol Insulin Glargine 24 units 09/18/24 21:00 09/18/24 20:30 Insulin Glargine (*Bkc) 100 Units/Ml SUB-Q 24 units HS JOHN Administration Lisinopril 10 mg 09/17/24 09:00 09/19/24 08:55 Lisinopril 10 Mg Tablet PO 10 mg BID JOHN Administration Spironolactone 25 mg 09/17/24 11:05 09/19/24 08:57 Spironolactone 25 Mg Tablet PO 25 mg QAM JOHN Administration Radiology Results: ITS Impressions Chest X-Ray 09/16/24 21:34 IMPRESSION: Possible Right basilar atelectasis versus pneumonia with possible effusion. Labs Labs: Laboratory Results - last 24 hr 09/18/24 09/18/24 09/18/24 04:34 11:48 15:33 POC Capillary Glucose 132 H 100 Troponin I 0.433 H* Triglycerides 98 Cholesterol 111 LDL Cholesterol Direct 66 HDL Direct 09/18/24 09/19/24 20:29 07:47 POC Capillary Glucose 195 H 115 H Troponin I Triglycerides Cholesterol LDL Cholesterol Direct HDL Direct Quality VTE Prophylaxis VTE prophylaxis: pharmacologic ordered
[2024-09-19 10:57] LABS: Anion Gap 6 mmol/L (4-12); Blood Urea Nitrogen 25 mg/dL (9-20); Calcium 8.3 mg/dL (8.4-10.2); Carbon Dioxide 29 mmol/L (22-30); Chloride 98 mmol/L (98-107); Estimated CRCL calculation 63 ml/min; Estimated Glomerular Filt Rate > 60; Glucose 286 mg/dL (65-110); Potassium 3.8 mmol/L (3.4-5.0); Sodium 133 mmol/L (137-145)
[2024-09-19 11:42] LABS: Glucose Point of Care 206 mg/dl (65-105)
--- NOTE | 2024-09-19 12:41 | PM.IMPN ---
Progress Note: A&P Assessment and Plan (1) Hypertension: Code(s): I10 - Essential (primary) hypertension Status: Acute (2) Hypertensive emergency: Code(s): I16.1 - Hypertensive emergency Status: Acute (3) Elevated troponin: Code(s): R79.89 - Other specified abnormal findings of blood chemistry Status: Acute (4) Cardiomyopathy: Code(s): I42.9 - Cardiomyopathy, unspecified Status: Acute (5) Acute on chronic systolic (congestive) heart failure: Code(s): I50.23 - Acute on chronic systolic (congestive) heart failure Status: Acute (6) Hypertension associated with diabetes: Code(s): E11.59 - Type 2 diabetes mellitus with other circulatory complications; I15.2 - Hypertension secondary to endocrine disorders Status: Acute (7) Hyperlipidemia associated with type 2 diabetes mellitus: Code(s): E11.69 - Type 2 diabetes mellitus with other specified complication; E78.5 - Hyperlipidemia, unspecified Status: Acute Plan 53 years old with past medical history of hypertension and congestive heart failure was admitted to the emergency room the complaint of having increased swelling in the lower extremity and shortness of breath going on for the last 1 week. According to the patient he is noncompliant with his medication and is not taking his water pill for the last few days. In the ER patient patient was high and patient was found to be in acute heart failure. Patient was given Lasix and hydralazine. Patient EKG shows nonspecific EKG changes Cardiology was consulted who decided to put the patient acute care for further management. (1) Acute on chronic combined heart failure: Code(s): I50.23 - Acute on chronic systolic (congestive) heart failure Status: Acute Assessment and Plan: The patient has chronic systolic and diastolic heart failure Echocardiogram February 15 showed Left ventricular systolic function is severely reduced, estimated at 25-30%. And The left ventricular diastolic function is grade I diastolic dysfunction. Elevated BNP 4740 upon arrival. Chest x-ray shows pulmonary congestion and basilar atelectasis Strict and I&Os. Cardiology consult. Switch from oral Lasix to IV Lasix 40 mg b.i.d. IV push Continuous parietal 25 mg daily p.o. Continue Jardiance 25 mg daily p.o. 09/18/24 echocardiogram 1. Left ventricular chamber dimension is mildly enlarged. 2. Left ventricular systolic function is normal, estimated at 30-35%. 3. There is severely increased left ventricular wall thickness. 4. The left ventricular diastolic function is grade II diastolic dysfunction. 5. Left atrial chamber dimension is mildly enlarged. 6. There is mild aortic valve regurgitation. 7. There is trace mitral valve regurgitation. Change to oral lasix po per cadriologist Increase lisinopril to 30 mg daily p.o., continue furosemide 60 mg b.i.d. p.o., spironolactone 25 mg daily p.o., Jardiance 10 mg daily p.o., on discharge (2) Elevated troponin: Code(s): R79.89 - Other specified abnormal findings of blood chemistry Status: Acute Assessment and Plan: Possible due to acute heart failure, demand ischemia Patient has no chest pain Continue aspirin 81 mg daily p.o., received 34 mg once in the ED, continue Lipitor 40 mg daily p.o. 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 and q.h.s. Diabetic Education Resume home medications at discharge (4) Hypertensive emergency: Code(s): I16.1 - Hypertensive emergency Status: Acute Assessment and Plan: Continue home medication lisinopril 20 mg daily p.o. Started IV Lasix 40 mg b.i.d. IV push Patient is on hydralazine IV p.r.n. Monitor blood pressure closely. Blood pressure is better controlled Increase lisinopril to 30 mg daily p.o., increase furosemide to 60 mg b.i.d. p.o. and discharge Hyperlipidemia Continue Lipitor 40 mg daily p.o. Smoking history: Code(s): Z87.891 - Personal history of nicotine dependence Status: Acute Assessment and Plan: Smoking Education provided and patient patient to quit smoking. Subjective Date/time seen: 09/19/24 12:41 Interval history: I saw examined patient today, patient denies chest pain, headache, blood pressure is not well controlled. Troponin positive is trending down.. Labs reviewed Exam Narrative: GENERAL: Pleasant, in no acute distress. Well-nourished. - EYES: EOMI. Anicteric. - HENT: Moist mucous membranes. - LUNGS: Clear to auscultation bilaterally, no wheezing, rhonchi, or rales. - CARDIOVASCULAR: Regular rate and rhythm. No murmur. No JVD. - ABDOMEN: Soft, non-tender and non-distended. No palpable masses. - EXTREMITIES: No edema. Peripheral pulses 2+. Non-tender. - NEUROLOGIC: No focal neurological deficits. CN II-XII grossly intact. - PSYCHIATRIC: Awake, Alert and oriented x 3. Appropriate mood and affect. - SKIN: No rashes or lesions. Warm. - LYMPH: No cervical lymphadenopathy. Objective Data Vital Signs Vital Signs: Vital Signs - 24 hr 09/18/24 14:00 09/18/24 15:36 09/18/24 16:00 Temperature 97.8 F Pulse Rate 88 86 Respiratory Rate 18 Blood Pressure 154/95 H Pulse Oximetry 97 Oxygen Delivery Room Air 09/18/24 16:00 09/18/24 18:00 09/18/24 19:37 Temperature 97.5 F L Pulse Rate 80 88 88 Respiratory Rate 20 Blood Pressure 149/90 H Pulse Oximetry 95 Oxygen Delivery 09/18/24 20:00 09/18/24 20:00 09/18/24 20:30 Temperature Pulse Rate 89 88 Respiratory Rate Blood Pressure Pulse Oximetry Oxygen Delivery Room Air 09/18/24 22:00 09/18/24 23:31 09/18/24 23:56 Temperature 98.7 F Pulse Rate 84 80 Respiratory Rate 20 Blood Pressure 113/67 Pulse Oximetry 92 Oxygen Delivery Room Air 09/19/24 00:00 09/19/24 02:00 09/19/24 04:00 Temperature Pulse Rate 81 81 Respiratory Rate Blood Pressure Pulse Oximetry Oxygen Delivery Room Air 09/19/24 04:00 09/19/24 04:08 09/19/24 06:00 Temperature 98.1 F Pulse Rate 75 78 77 Respiratory Rate 16 Blood Pressure 136/86 Pulse Oximetry 95 Oxygen Delivery 09/19/24 07:46 09/19/24 08:45 09/19/24 08:55 Temperature 98.6 F Pulse Rate 76 79 79 Respiratory Rate 16 Blood Pressure 138/87 Pulse Oximetry 96 Oxygen Delivery 09/19/24 11:31 Temperature 98 F Pulse Rate 79 Respiratory Rate 16 Blood Pressure 131/84 Pulse Oximetry 100 Oxygen Delivery Intake/Output Intake/Output: Intake & Output 09/16/24 09/17/24 09/18/24 09/19/24 23:59 23:59 23:59 23:59 Intake Total 1790 2295 410 Output Total 2650 3150 400 Balance -860 -855 10 Meds/Results Medications: Active Medications Generic Name Dose Route Start Last Admin Trade Name Freq PRN Reason Stop Dose Admin Aspirin 81 mg 09/18/24 09:00 09/19/24 08:54 Aspirin 81 Mg Enteric Tablet PO 81 mg QAM JOHN Administration Atorvastatin Calcium 40 mg 09/19/24 21:00 Atorvastatin 40 Mg Tablet PO HS JOHN Carvedilol 6.25 mg 09/18/24 21:00 09/19/24 08:55 Carvedilol 6.25 Mg Tablet PO 6.25 mg Q12HR JOHN Administration Dextrose 12.5 gm 09/17/24 07:47 Dextrose 50% 25 Gm/50 Ml Syringe IV PUSH PRN PRN Hypoglycemia Protocol Empagliflozin 25 mg 09/18/24 09:00 09/19/24 08:59 Empagliflozin 25 Mg Tablet PO 25 mg DAILY JOHN Administration Enoxaparin Sodium 40 mg 09/17/24 09:00 09/19/24 08:56 Enoxaparin 40 Mg/0.4 Ml Syringe SUB-Q 40 mg DAILY JOHN Administration Furosemide 60 mg 09/18/24 17:00 09/19/24 08:56 Furosemide 20 Mg Tablet PO 60 mg BID JOHN Administration Glucagon 1 mg 09/17/24 07:47 Glucagon For Inj 1 Mg Vial IM PRN PRN Hypoglycemia Protocol Glucose 15 gm 09/17/24 07:47 Glucose Oral Gel 15 Gm Of Glucse In 37.5 Gm Tube PO PRN PRN Hypoglycemia Protocol Hydralazine HCl 10 mg 09/18/24 09:28 09/18/24 12:25 Hydralazine Hcl 20 Mg/Ml Vial IV PUSH 10 mg Q6H PRN Administration Blood Pressure - High Dextrose 1,000 mls @ 100 mls/hr 09/17/24 07:47 Dextrose 5% 1,000 Ml IVPB PRN PRN Hypoglycemia Protocol Insulin Glargine 24 units 09/18/24 21:00 09/18/24 20:30 Insulin Glargine (*Bkc) 100 Units/Ml SUB-Q 24 units HS JOHN Administration Lisinopril 10 mg 09/17/24 09:00 09/19/24 08:55 Lisinopril 10 Mg Tablet PO 10 mg BID JOHN Administration Spironolactone 25 mg 09/17/24 11:05 09/19/24 08:57 Spironolactone 25 Mg Tablet PO 25 mg QAM JOHN Administration Radiology Results: ITS Impressions Chest X-Ray 09/16/24 21:34 IMPRESSION: Possible Right basilar atelectasis versus pneumonia with possible effusion. Labs Labs: Laboratory Results - last 24 hr 09/18/24 09/18/24 09/19/24 15:33 20:29 07:47 Sodium Potassium Chloride Carbon Dioxide Anion Gap BUN Creatinine Estim Creat Clear Calc Estimated GFR Glucose POC Capillary Glucose 100 195 H 115 H Calcium Magnesium 09/19/24 09/19/24 10:01 11:30 Sodium 133 L Potassium 3.8 Chloride 98 Carbon Dioxide 29 Anion Gap 6 BUN 25 H Creatinine 1.19 Estim Creat Clear Calc 63 Estimated GFR > 60 Glucose 286 H POC Capillary Glucose 206 H Calcium 8.3 L Magnesium 2.0
--- NOTE | 2024-09-19 12:45 | P.DS_ITS ---
DS: Admitting Diagnosis Discharge Date 09/19/24 Admitting Diagnosis (1) Hypertension: Code(s): I10 - Essential (primary) hypertension Status: Acute (2) Hypertensive emergency: Code(s): I16.1 - Hypertensive emergency Status: Acute (3) Elevated troponin: Code(s): R79.89 - Other specified abnormal findings of blood chemistry Status: Acute (4) Cardiomyopathy: Code(s): I42.9 - Cardiomyopathy, unspecified Status: Acute (5) Acute on chronic systolic (congestive) heart failure: Code(s): I50.23 - Acute on chronic systolic (congestive) heart failure Status: Acute (6) Hypertension associated with diabetes: Code(s): E11.59 - Type 2 diabetes mellitus with other circulatory complications; I15.2 - Hypertension secondary to endocrine disorders Status: Acute (7) Hyperlipidemia associated with type 2 diabetes mellitus: Code(s): E11.69 - Type 2 diabetes mellitus with other specified complication; E78.5 - Hyperlipidemia, unspecified Status: Acute DS: Discharge Diagnosis Discharge Diagnosis (1) Hypertension: Code(s): I10 - Essential (primary) hypertension Status: Acute (2) Hypertensive emergency: Code(s): I16.1 - Hypertensive emergency Status: Acute (3) Elevated troponin: Code(s): R79.89 - Other specified abnormal findings of blood chemistry Status: Acute (4) Cardiomyopathy: Code(s): I42.9 - Cardiomyopathy, unspecified Status: Acute (5) Acute on chronic systolic (congestive) heart failure: Code(s): I50.23 - Acute on chronic systolic (congestive) heart failure Status: Acute (6) Hypertension associated with diabetes: Code(s): E11.59 - Type 2 diabetes mellitus with other circulatory complications; I15.2 - Hypertension secondary to endocrine disorders Status: Acute (7) Hyperlipidemia associated with type 2 diabetes mellitus: Code(s): E11.69 - Type 2 diabetes mellitus with other specified complication; E78.5 - Hyperlipidemia, unspecified Status: Acute DS: Summary Hospital Course Hospital Course: 53 years old with past medical history of hypertension and congestive heart failure was admitted to the emergency room the complaint of having increased swelling in the lower extremity and shortness of breath going on for the last 1 week. According to the patient he is noncompliant with his medication and is not taking his water pill for the last few days. In the ER patient patient was high and patient was found to be in acute heart failure. Patient was given Lasix and hydralazine. Patient EKG shows nonspecific EKG changes Cardiology was consulted who decided to put the patient acute care for further management. The following med issues have been addressed during hospitalization (1) Acute on chronic combined heart failure: Code(s): I50.23 - Acute on chronic systolic (congestive) heart failure Status: Acute Assessment and Plan: The patient has chronic systolic and diastolic heart failure Echocardiogram February 15 showed Left ventricular systolic function is severely reduced, estimated at 25-30%. And The left ventricular diastolic function is grade I diastolic dysfunction. Elevated BNP 4740 upon arrival. Chest x-ray shows pulmonary congestion and basilar atelectasis Strict and I&Os. Cardiology consult. Switch from oral Lasix to IV Lasix 40 mg b.i.d. IV push Continuous parietal 25 mg daily p.o. Continue Jardiance 25 mg daily p.o. 09/18/24 echocardiogram 1. Left ventricular chamber dimension is mildly enlarged. 2. Left ventricular systolic function is normal, estimated at 30-35%. 3. There is severely increased left ventricular wall thickness. 4. The left ventricular diastolic function is grade II diastolic dysfunction. 5. Left atrial chamber dimension is mildly enlarged. 6. There is mild aortic valve regurgitation. 7. There is trace mitral valve regurgitation. Change to oral lasix po per cadriologist Increase lisinopril to 30 mg daily p.o., continue furosemide 60 mg b.i.d. p.o., spironolactone 25 mg daily p.o., Jardiance 10 mg daily p.o., on discharge (2) Elevated troponin: Code(s): R79.89 - Other specified abnormal findings of blood chemistry Status: Acute Assessment and Plan: Possible due to acute heart failure, demand ischemia Patient has no chest pain Continue aspirin 81 mg daily p.o., received 34 mg once in the ED, continue Lipitor 40 mg daily p.o. 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 and q.h.s. Diabetic Education Resume home medications at discharge (4) Hypertensive emergency: Code(s): I16.1 - Hypertensive emergency Status: Acute Assessment and Plan: Continue home medication lisinopril 20 mg daily p.o. Started IV Lasix 40 mg b.i.d. IV push Patient is on hydralazine IV p.r.n. Monitor blood pressure closely. Blood pressure is better controlled Increase lisinopril to 30 mg daily p.o., increase furosemide to 60 mg b.i.d. p.o. and discharge Hyperlipidemia Continue Lipitor 40 mg daily p.o. Smoking history: Code(s): Z87.891 - Personal history of nicotine dependence Status: Acute Assessment and Plan: Smoking Education provided and patient patient to quit smoking. Time Spent with Patient Time attestation: Total time spent providing and/or coordinating discharge services: Exam Narrative: GENERAL: Pleasant, in no acute distress. Well-nourished. - EYES: EOMI. Anicteric. - HENT: Moist mucous membranes. - LUNGS: Clear to auscultation bilateral ly, no wheezing, rhonchi, or rales. - CARDIOVASCULAR: Regular rate and rhyth m. No murmur. No JVD. - ABDOMEN: Soft, non-tender and non-dist ended. No palpable masses. - EXTREMITIES: No edema. Peripheral puls es 2+. Non-tender. - NEUROLOGIC: No focal neurological defi cits. CN II-XII grossly intact. - PSYCHIATRIC: Awake, Alert and oriented x 3. Appropriate mood and affect. - SKIN: No rashes or lesions. Warm. - LYMPH: No cervical lymphadenopathy. DS: Data Data Completed and Pending Labs on day of discharge: Labs from last 24 hours 09/19/24 09/19/24 09/19/24 11:30 10:01 07:47 Sodium 133 L Potassium 3.8 Chloride 98 Carbon Dioxide 29 Anion Gap 6 BUN 25 H Creatinine 1.19 Estim Creat Clear Calc 63 Estimated GFR > 60 Glucose 286 H POC Capillary Glucose 206 H 115 H Calcium 8.3 L Magnesium 2.0 09/18/24 09/18/24 20:29 15:33 Sodium Potassium Chloride Carbon Dioxide Anion Gap BUN Creatinine Estim Creat Clear Calc Estimated GFR Glucose POC Capillary Glucose 195 H 100 Calcium Magnesium Discharge Plan Discharge Attending physician on discharge: Andreina Worley Consulting providers: Jordan Motley Discharging Clinician: Andreina Worley Anticipated Discharge Date/Time: 09/19/24 13:45 Patient Disposition: Home, Self-Care Activity: as tolerated Diet: as tolerated and heart healthy Patient Instructions: Antibiotic Form, Heart Failure (GEN) Patient Language: Macedonian Stand Alone Forms: General Discharge Information Follow-up/Referrals: Marci,JOCELIN Miramontes [Primary Care Provider] - (Patient needs to see PCP in 1 week) Jordan Motley MD [Physician] - (Patient needs to see primary care doctor at scheduled appointment) Discharge Medications: New aspirin 81 mg Tablet,Delayed Release (Dr/Ec) 81 mg PO QAM Qty: 60 0RF lisinopril 10 mg Tablet 10 mg PO BID Qty: 60 0RF Jardiance 25 mg Tablet 25 mg PO DAILY Qty: 60 0RF furosemide 20 mg Tablet 60 mg PO BID Qty: 180 0RF carvedilol [Coreg] 6.25 mg Tablet 6.25 mg PO Q12HR Qty: 60 0RF atorvastatin 40 mg Tablet 40 mg PO HS Qty: 60 0RF Continued metformin [Glucophage] 500 mg Tablet 500 mg PO BIDWM Qty: 60 2RF (DME) blood-glucose meter [OneTouch Verio Flex meter] Misc Qty: 1 0RF Rx Instructions: May substitute to in-stock meter and/or covered by insurance. Use As Directed (DME) OneTouch Verio test strips Strip Qty: 1 0RF Rx Instructions: May substitute to in-stock and/or covered by insurance strips. Use As Directed (DME) pen needle, diabetic [BD Ultra-Fine Zee Pen Needle] 32 gauge x 5/32 Needle Qty: 1 0RF Rx Instructions: May substitute to meet patient needs. Use As Directed (DME) lancets [OneTouch Delica Plus Lancet] 30 gauge Misc Qty: 1 0RF Rx Instructions: May substitute to in-stock and/or covered by insurance lancets. Use As Directed atorvastatin 40 mg tablet 40 mg PO QPM Jardiance 25 mg tablet 25 mg PO DAILY insulin glargine [Lantus Solostar U-100 Insulin] 100 unit/mL (3 mL) insulin pen 24 unit subcut HS spironolactone 25 mg tablet 25 mg PO DAILY Qty: 60 0RF lisinopril 20 mg Tablet 20 mg PO QAM Qty: 60 2RF Discontinued furosemide 40 mg tablet 40 mg PO DAILY Date of admission: 09/18/24 10:00 Primary Care Provider: MarciCher Admitting Provider: Elisa Donovan V. Attending physician on admission: Elisa Donovan V. Condition: Serious
== END 2024-09-19 17:15 | disposition home or self-care (01) | DRG 194 ==
LOC: ANHED 09-17 02:06 → ANHIMU 09-17 02:16
PROVIDERS: Internal Medicine; Internal Medicine Cardiovascular Disease; Admitting Provider Internal Medicine; Emergency Provider Emergency Medicine; PCP Physician Assistant; Visit Provider Hospitalist
DX: I11.0 Hypertensive heart disease with heart failure (principal); I50.43 Acute on chronic combined systolic (congestive) and diastolic (congestive) heart failure; I16.1 Hypertensive emergency; I43 Cardiomyopathy in diseases classified elsewhere; E78.5 Hyperlipidemia, unspecified; E11.9 Type 2 diabetes mellitus without complications; Z91.148 Patient's other noncompliance with medication regimen for other reason; Z79.84 Long term (current) use of oral hypoglycemic drugs; Z79.4 Long term (current) use of insulin; Z20.822 Contact with and (suspected) exposure to COVID-19; Z79.82 Long term (current) use of aspirin; Z87.891 Personal history of nicotine dependence
CPT/HCPCS: 36415; 71046; 80048; 80053; 80061; 82948; 83036; 83735; 83880; 84484; 85025; 85027; 87637; 93005; 96372; 96374; 96375; 96376; 99285; A9270; C8929; G0378; G0379; J0360; J1650; J1815; J1940; Q9957